=== PATIENT | male | born 1955 | race Caucasian/White ===

== ENCOUNTER → 2025-01-24 08:42 | Outpatient (REF) | payer OTHER, SELFPAY | LOC: RAD 08:42 | PROVIDERS: ATTENDING PHYSICIAN Internal Medicine Clinical Cardiac Electrophysiology; FAMILY PHYSICIAN Nurse Practitioner | DX: R94.39 Abnormal result of other cardiovascular function study (principal) | CPT/HCPCS: 75574; Q9967 ==

== ENCOUNTER 2025-02-06 20:35 | Inpatient (IN) | payer OTHER, SELFPAY ==
[2025-02-06 20:40] VITALS: BP 159/72
[2025-02-06 20:43] VITALS: BP 154/78
[2025-02-06 20:48] VITALS: BMI 33.5
--- NOTE | 2025-02-06 22:01 | PTCARENOTE ---
Rec'd pt as transfer. Pt AAO*3, VSS, and SR on BBB and 1st degree AV block. Pt denies any pain or discomfort. PT oriented to room and call reyes. Pt denies any pain or discomfort. Pt now resting with call reyes in reach. Admission complete. See
MAR and flowchart for full pt care and assessment.
[2025-02-06 22:35] VITALS: BP 145/92
--- NOTE | 2025-02-06 23:44 | PTCARENOTE ---
R radial site from [facility], no ecchymosis, or edema present. Pt denies pain or discomfort at site.
--- NOTE | 2025-02-06 23:54 | HPS.HSE ---
Family Physician
-
Family Physician: Dr Miramontes
Preventive Medicine Physician: Dr. Berrios at [facility]
Chief Complaint
-
Chest pain and FABIAN.
History of Present Illness
Mr Townsend is a very pleasant 69 yo gentleman with hx HTN, hyperlipidemia, non-smoker, RBBB/LAFB, Non-Hodgkin's lymphoma in 2017 with partial thyroidectomy and chemo, fatty liver, diverticulitis with hemicolectomy. Pt initially had episode of CP on
2024 [place] the [place]. At that time, CP radiated to his back along with sxs of nausea and diaphoresis. He underwent a pharmacologic stress test with nuclear imaging on 12/04/24, which revealed defect in the inferolateral wall
concerning for ischemia. He was referred for a catherization, though the study was denied by his insurance. He underwent a CT coronary angiogram on 01/25, revealing a 50-70% stenosis in the proximal LAD, a greater than 70% stenosis in D1, greater
than 70% stenosis in the L Circ artery, and greater than 70% stenosis in the RCA. He underwent TTE on 10/31/24 demonstrating normal LV size and systolic function with EF 55-60%. He was started on daily baby ASA by his programming intern at that time. He
also takes Losartan 50 mg qd for HTN. In the past, he was also taking Lasix as needed for L leg swelling with neuropathy, but no longer takes that. He states that studies of this were unrevealing.
On 02/05/25 Mr Townsend experienced CP with significant dyspnea and headache while carrying heavy groceries from [employer]. On the advice from Dr. Berrios, he presented to [facility] ED. He denied having any nausea or diaphoresis and reported
that CP felt 'stabbing or burning' and non-radiating. It was relieved with 1 sl Nitro in ED. High-sesitivity troponins were 17 and 18. His initial ECG was unchanged from baseline and revealed NSR with a RBBB and LAFB. Labs demonstrated Hg 14.7, Cr
0.99, TSH was elevated 9.57 with nl free T4 of 0.75, nl LFTs. Lipid profile revealed total cholesterol 184, triglycerides 149, HDL 33, LDL 121, Chol/HDL ratio 5.6. Pt was started on Lipitor and Toprol.
On 02/06/25 he underwent cardiac cath revealing mv-CAD and was transferred to for an evaluation for CABG. He denies having any CP since his presentation to the ED. He appears comfortable, no SOB or CP. He is not on any drips.
Medical History
Past Medical History
Past Medical History: Reports CAD, HTN and Hypercholesterolemia
Additional Past Medical History:
-Non-Hodgkin's lymphoma in 2017 with chemotherapy (in remission)
-Fatty liver
-L leg paresthesia/neuropathy
Past Surgical History: Reports Appendectomy, Bowel Resection and Cholecystectomy
Additional Past Surgical History:
-Partial thyroidectomy with chemo for lymphoma
-Hemicolectomy for divericullitis
-Cholecystectomy
-L knee surgery in 2022 for traumatic quadriceps tendon rupture after a fall
Social History
Tobacco: Non-smoker
Alcohol: Occasional
Drug: None
Personal: ('s name is Evelyne)
Living: With Family
Employment: Retired (Pt used to work at past factory)
Family History
Family History: Early CAD
Allergies / Home Medications
Allergies reflects when Allergies were last updated in [facility].
Home Medications with original date entered in [facility]
Allergy/Medication List:
Allergies
Allergy/AdvReac Type Severity Reaction Status Date / Time
NKA - No Known Allergies Allergy Unknown Unknown Uncoded 10/20/13 00:03
ASA 81 mg qd
Losartan 50 mg qd
Lipitor 40 mg qd
Toprol XL 25 mg qd
Heparin 5000 units sq q8h
Review of Systems
-
History Source: Patient
A 12 point ROS was completed and negative except as noted: Yes
Constitutional: Reports No Symptoms
EENT: Reports No Symptoms
Respiratory: Reports Other (FABIAN)
Cardiac: Reports Chest Pain
Abdomen/GI: Reports No Symptoms
: Reports No Symptoms
Musculoskeletal: Reports No Symptoms
Skin: Reports No Symptoms
Neurological: Reports No Symptoms
Endocrine: Reports No Symptoms
Hematologic/Lymphatic: Reports No Symptoms
Psych: Reports No Symptoms
Physical Exam
Vital Signs
Vital Signs
Temp Pulse Resp BP Pulse Ox
98.4 F 57 16 145/92 98
02/06/25 20:49 02/06/25 23:00 02/06/25 20:49 02/06/25 22:35 02/06/25 23:41
Physical Exam
General: Well Developed, Well Nourished, No Apparent Distress, Comfortable and Conversant
HEENT: NormoCephalic, Moist mucous membranes, Atraumatic, PERRLA and Other (no carotid bruit b/l)
Respiratory: Clear
Cardiac: S1/S2 and Regular Rhythm
GI: Soft, Non Tender, Non Distended and Normal Bowel Sounds
Musculoskeletal: No Clubbing, No Cyanosis, Edema, Left Lower Extremity (1+) and Edema, Right Lower Extremity (1+)
Skin: Dry
Neuro: Awake, AO x 3, No Motor Deficits and Nonfocal/grossly intact
Psych: Calm and Intact Judgment/Insight
Laboratory Results
-
as in HPI
Data Reviewed
-
Diagnostic Radiology: Report Reviewed by me
CT Scan: Report Reviewed by me
Medical Tests (Nuc Med, Echo, EKG etc): Report Reviewed by me
Lab Data: Labs Reviewed by me
Old Records: Reviewed
Impression/Plan
-
IMPRESSION:
-Cath 02/06/25 at [facility] with mv-CAD- transferred for evaluation for CABG
-HTN
-HLD
-RBBB/LAFB
-TTE on 10/31/24 demonstrating normal LV size and systolic function with EF 55-60%
-Non-Hodgkin's lymphoma 2017 with partial thyroidectomy and chemo. Pt had no radiation (refused)
-Elevated TSH 9.57 with nl free T4 of 0.75 on 02/05/25
-Coronary CT angio 01/24/25 revealed enlargement of the left lobe of the liver and caudate lobe, suggesting mild hepatic cirrhosis. Also, mild diffuse pancreatic parenchymal atrophy and lipomatosis; mildly enlarged spleen and likely complex cyst at
R kidney.
-hx diverticulitis with hemicolectomy
-Cholecystectomy
-L knee sx
-intermittent L lower extremity swelling with paresthesia and discoloration, suspected neuropathy.
PLAN:
-review findings with Dr. Hills
-initiate preop evaluation for CABG
-continue ASA, Lipitor, Toprol, prn sl Nitro. Will consider iv Nitro if further CP
-will hold off Losartan preop
-will ask Cardiology to follow
-follow rhythm (sinus jc mid 50s overnight).
[2025-02-07 03:41] VITALS: BP 147/77; BMI 33.3
[2025-02-07 03:56] LABS: Hematocrit 43.8 % (39.0-52.0); Hemoglobin 14.5 g/dL (13.0-18.0); Mean Corp Hgb Conc. 33.1 g/dL (33.0-37.0); Mean Corpuscular Volume 94.0 fL (80.0-94.0); Platelet Count 225 10^3/uL (130-400); Red Cell Dist. Width 12.9 % (11.5-14.5)
[2025-02-07 04:05] LABS: INR 1.01; PT 13.8 Sec (11.4-14.6)
[2025-02-07 04:06] LABS: APTT 30.8 Sec (23.4-35.0)
[2025-02-07 04:24] LABS: ALT (SGPT) 49 U/L (0-50); AST (SGOT) 35 U/L (17-59); Albumin 4.1 g/dl (3.5-5.0); Alkaline Phosphatase 55 U/L (38-126); Blood Urea Nitrogen 15 mg/dl (9-20); Calcium 9.1 mg/dl (8.4-10.2); Carbon Dioxide 24 mmol/L (22-30); Chloride 109 mmol/L (98-107); Estimated Creatinine Clearance 99 ml/min; Glucose 112 mg/dl (70-99); Magnesium 1.9 mg/dl (1.6-2.3); Potassium 4.4 mmol/L (3.5-5.1); Sodium 140 mmol/L (135-145); Total Protein 6.9 g/dl (6.3-8.2); eGFR > 60.00
[2025-02-07 04:36] LABS: Troponin I 0.022 ng/ml
[2025-02-07 07:41] VITALS: BP 146/72
--- NOTE | 2025-02-07 08:04 | CON.CAR ---
Addendum entered and electronically signed by Arthur Anne MD 02/07/25 15:27:
I saw and examined the patient independently, and performed majority of MDM.
The MOBILE DEVELOPER's note was reviewed and I agree with the note with changes, additions below.
Comment: 69 yo male with HTN transferred to for CABG eval. Cath showed multivessel CAD. He is currently chest pain free. Exam with RRR, no murmurs, no edema. Cr 0.8. Tele: SR/SB, PVC's.
Multivessel CAD
-echo
-CABG eval
-ASA, metoprolol, statin
HTN
-cont metoprolol
Original Note:
Consultation
Consultation Request
Date/Time Consultation Requested: 02/07/25 7a
Date/Time Consultation Performed: 02/07/25 8a
Requesting Provider: CHRISTIAN Zayas
Performing Provider: CHRISTIAN Crain for Dr. Anne
Reason for Consultation: CAD
Medical History
-
Chief Complaint: CAD
History of Present Illness:
Mr. Townsend is a 69 yo male with HTN, non-Hodgkin's lymphoma 2017 treated with chemo, diverticulitis with hemicolectomy, fatty liver, RBBB, LAFB, and abnormal outpatient stress test (11/2024) his insurance denied a cath and abnormal CT coronary angio
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 Saenz. Troponins were elevated and so he underwent cardiac cath 02/06/25 that showed multivessel CAD. He was transferred to [facility] for evaluation of
CABG. Echo 10/2024 with normal LVEF. We are consulted for CAD.
Urologist is Dr. Berrios at [facility].
Past Medical History
Past Medical History: Other (as above)
Past Surgical History: Appendectomy, Bowel Resection, Cholecystectomy, Orthopedic (left knee surgery 2022) and Other (partial thyroidectomy)
Social History
Tobacco: Non-Smoker
Alcohol: Occasional (1 glass of wine a week)
Drug: None
Personal:
Living: With Family
Employment: Retired
Family History
Family History: Early CAD
Allergies / Home Medications
Allergy/AdvReac Type Severity Reaction Status Date / Time
NKA - No Known Allergies Allergy Unknown Unknown Uncoded 10/20/13 00:03
�Medication �Instructions �Recorded �Confirmed �Type
losartan 100 mg tablet 100 mg PO DAILY 01/24/25 01/24/25 History
Review of Systems
-
History Source: Patient
All other systems: Negative unless noted
Physical Exam
Vital Signs
Temp Pulse Resp BP Pulse Ox
98.4 F 69 18 145/92 98
02/07/25 07:42 02/07/25 03:39 02/07/25 07:42 02/06/25 22:35 02/07/25 07:42
Lab Results
02/07/25 03:48
02/07/25 03:48
Troponin I 0.022 ng/ml 02/07/25 03:48
Physical Exam
General: Well Developed, Well Nourished and No Apparent Distress
HEENT: Normocephalic and Anicteric
Respiratory: Clear and Non Labored Respirations
Cardiac: S1/S2 and Regular Rhythm
Breast: Deferred by me
GI: Soft, Non Tender and Normal Bowel Sounds
Genito-urinary: Clear Urine
Musculoskeletal: No Edema
Skin: Warm and Dry
Neuro: AO x 3
Hematologic/Lymphatic: No Lymphadenopathy
Psych: Calm
Impression / Plan
-
CAD - multivessel on cath 02/06/25.
- transferred to [facility] for CABG evaluation.
- continue medical therapy.
- await CT surgery eval and timing for CABG.
HTN - stable on Losartan.
- holding Losartan prior to CABG.
HLD - on Lipitor.
- Lipid profile 02/05/25 TC 184, TG 149, HDL 33, LDL 121.
- goal LDL < 55.
RBBB/LAFB - chronic, stable.
Data Reviewed
-
EKG: Tracing Personally Visualized and interpreted (SR 64 bpm bifascicular block )
Radiology: Report Reviewed by me (CXR: NAD )
Medical Tests (Nuc Med, Echo etc): Report Reviewed by me (CT coronary angiogram 01/25/25: 50-70% stenosis in the proximal LAD, a greater than 70% stenosis in D1, greater than 70% stenosis in the LCx, and greater than 70% stenosis in the RCA.) and
Other (Echo 10/2024: normal LVEF)
Labs: Labs Reviewed by me
Old Records: Reviewed
[2025-02-07] MEDS: LOW STRENGTH ASPIRIN 81 MG PO (09:13)
[2025-02-07] MEDS: TOPROL XL 25 MG PO (09:13)
[2025-02-07 10:30] LABS: Glycohemoglobin (HgbA1c) 6.2 % (4.0-5.9)
[2025-02-07 10:55] VITALS: BP 147/86
--- NOTE | 2025-02-07 14:10 | PTCARENOTE ---
Pt denies any discomfort, OOB in his room. Pt had CT scan of the chest and multiple U/S studies done. Telemetry shows sinus rhythm with first degree AV block, BBB. Pt using IS to 3250mls with good technique.
[2025-02-07 15:15] VITALS: BP 142/72
--- NOTE | 2025-02-07 16:50 | CM ---
spoke to pt in room, he is prev indep, lives with his in an apt with 5 steps to enter. he denies any dme's. plan is for CABG on 02/12, cm gave pt ct surgery book, will sit down and preop both him and his next week before surgery. cm
role explained and all questions answered.
[2025-02-07] MEDS: LIPITOR 40 MG PO (17:56)
--- NOTE | 2025-02-07 17:57 | PTCARENOTE ---
pt remains stable -no chest pain. family visiting.
--- NOTE | 2025-02-07 18:35 | W.PN.UPDATE ---
Update Note
Progress Note Update
STS RISK SCORE
Procedure Type:�Isolated CABG
Perioperative Outcome Estimate %
Operative Mortality 0.407%
Morbidity & Mortality 2.81%
Stroke 0.345%
Renal Failure 0.342%
Reoperation 1.57%
Prolonged Ventilation 1.35%
Deep Sternal Wound Infection 0.098%
Long Hospital Stay (>14 days) 0.962%
Short Hospital Stay (<6 days)* 75.4%
Clinical Summary
Planned Surgery: Isolated CABG, Urgent, First cardiovascular surgery
Demographics: 69 year old, male, 96.3kg, 170cm, BMI: 33.3 kg/m�
Lab Values: Creatinine: 0.8 mg/dL, Hematocrit: 43.8%, WBC Count: 7.8 10�/�L, Platelet Count: 867895 cells/�L
Substance Abuse: Never smoker, Alcohol use: 2-7 drinks/week
Risk Factors / Comorbidities: Hypertension, Family Hx of CAD
Cardiac Status: NYHA Class II, Ejection Fraction = 53%
Coronary Artery Disease: Unstable Angina
Valve Disease: Moderate MR, Trivial/Trace TR
[2025-02-07 18:44] VITALS: BP 147/75
[2025-02-07 22:44] VITALS: BP 128/63
--- NOTE | 2025-02-08 00:39 | W.PN.CT ---
Today's Communication / Plan
-
-no issues overnight
-no significant carotid stenosis
-complete palmar arch on Left
-plans for CABG on 02/[address] Hills
Assessment / Plan
-
IMPRESSION:
-mv-CAD- transferred for evaluation for CABG
-HTN
-HLD
-RBBB/LAFB
-TTE on 10/31/24 demonstrating normal LV size and systolic function with EF 55-60%
-Non-Hodgkin's lymphoma 2017 with partial thyroidectomy and chemo. Pt had no radiation (refused)
-Elevated TSH 9.57 with nl free T4 of 0.75 on 02/05/25
-Coronary CT angio 01/24/25 revealed enlargement of the left lobe of the liver and caudate lobe, suggesting mild hepatic cirrhosis. Also, mild diffuse pancreatic parenchymal atrophy and lipomatosis; mildly enlarged spleen and likely complex cyst at
R kidney.
-CT 02/07/25: fatty liver, suspected early cirrhosis
-hx diverticulitis with hemicolectomy
-Cholecystectomy
-L knee sx
-intermittent L lower extremity swelling with paresthesia and discoloration, suspected neuropathy.
Echo 02/07/25:
1. Normal left ventricular size, and systolic function. Estimated LVEF 50-55%.
2. Basal inferior hypokinesis.
3. Mild/moderate mitral valve regurgitation.
4. Aortic valve sclerosis without stenosis.
5. Trivial pericardial effusion is present.
6. No prior study for comparison.
Chest CT 02/07/25:
-There is no evidence for thoracic aortic aneurysm.
-Coronary artery calcifications are present in this patient scheduled for cardiothoracic surgery.
-Thin linear densities within both lower lungs compatible with linear atelectasis.
-Minimal pericardial effusion, unlikely to be clinically significant.
-Fatty infiltration the liver, with morphology that can be associated with early cirrhosis. Please correlate with any risk factors for cirrhosis.
Discussed patient care with: Nursing and Care Team
Subjective
-
Date of Service: February 08, 2025
Objective Data
-
Lab Results
02/07/25 03:48
02/07/25 03:48
PT 13.8 Sec (11.4-14.6) 02/07/25 03:48
INR 1.01 02/07/25 03:48
APTT 30.8 Sec (23.4-35.0) 02/07/25 03:48
Vital Signs
Vital Signs
Temp Pulse Resp BP Pulse Ox
98.2 F 68 20 142/72 98
02/07/25 22:50 02/07/25 18:43 02/07/25 22:50 02/07/25 15:15 02/07/25 22:50
CT Intake/Output/Weight
02/07/25 02/07/25 02/08/25
06:59 18:59 06:59
Intake Total 250 / 250 240 / 240
Balance 250 / 250 240 / 240
SaO2: 98
Physical Exam
-
General: Awake and AOx3
Cardiovascular: Regular rate & rhythm, No Murmurs and No Rub
Respiratory: Clear
Extremities: Edema +1
Abdomen: soft, nontender, nondistended, + bowel sounds
Data Reviewed
-
Lab Results: Results Reviewed
Medications: Active Meds Reviewed
Chest X-Ray: Report Reviewed and Image Reviewed
ECG: Report Reviewed and Image Reviewed
--- NOTE | 2025-02-08 03:30 | PTCARENOTE ---
Assumed care on pt at 1900, aaox3,walking around the unit with no c/o cp or SOB. SR/SB on the monitor, HR 55-70's. Call reyes within reach.
[2025-02-08 04:04] VITALS: BP 152/75; BMI 33.1
[2025-02-08] MEDS: LOW STRENGTH ASPIRIN 81 MG PO (07:49)
[2025-02-08] MEDS: TOPROL XL 25 MG PO (07:49)
[2025-02-08 08:52] VITALS: BP 138/64
--- NOTE | 2025-02-08 09:05 | W.PN.CD ---
Today's Communication / Plan
-
Continue with medical therapy
Continued assessment for CABG by CT surgery
Impression / Plan
-
CAD - multivessel on cath 02/06/25.
- transferred to [facility] for CABG evaluation.
- Echo with EF 50 to 55%
- Stable evaluated overnight
- continue medical therapy.
- await CT surgery eval and timing for CABG.
HTN -continue to monitor.
- Blood pressure mildly elevated. Can add amlodipine for additional blood pressure control.
- holding Losartan prior to CABG.
HLD -now on Lipitor.
- Lipid profile 02/05/25 TC 184, TG 149, HDL 33, LDL 121.
RBBB/LAFB - chronic, stable.
Physical Exam
Vital Signs/Labs
Vital Signs
Temp Pulse Resp BP Pulse Ox
98.0 F 56 20 152/75 98
02/08/25 03:57 02/08/25 06:00 02/08/25 03:57 02/08/25 04:04 02/08/25 03:57
02/07/25 02/08/25 02/09/25
06:59 06:59 05:59
Actual Weight 96.3 kg 95.7 kg
02/07/25 03:48
02/07/25 03:48
PT 13.8 Sec (11.4-14.6) 02/07/25 03:48
INR 1.01 02/07/25 03:48
APTT 30.8 Sec (23.4-35.0) 02/07/25 03:48
Magnesium 1.9 mg/dl (1.6-2.3) 02/07/25 03:48
LAB Results
02/07/25
03:48
Troponin I 0.022
Physical Exam
Constitutional: No acute distress
Cardiovascular: Rhythm & rate is regular
Respiratory: Wheeze Absent and Rhonchi Absent
Neuro/Psych: Alert and Oriented
Data Reviewed
-
Date of Service: February 08, 2025
Medical Decision Making: Reviewed Test Results
X-Ray/CT/US/MRI/NUC/PET: Report Reviewed by me
Medical Tests (PFT, Pathology etc): Report Reviewed by me
Labs: Labs Reviewed by me
--- NOTE | 2025-02-08 09:13 | W.PN.CD ---
Today's Communication / Plan
-
Stable without angina
Continue to monitor blood pressures can add amlodipine or nitrates if additional blood pressure control required can reassess blood pressures after morning beta-rakesh. No additional room for beta-rakesh increase due to heart rate
Additional assessment for CABG by CT surgery
Impression / Plan
-
CAD - multivessel on cath 02/06/25.
- transferred to [facility] for CABG evaluation.
- Echo with EF 50 to 55%
- Stable evaluated overnight
- continue medical therapy.
- await CT surgery eval and timing for CABG.
HTN -continue to monitor.
- Blood pressure mildly elevated. Can add amlodipine for additional blood pressure control. Can consider addition of amlodipine or nitrates for additional blood pressure control
- holding Losartan prior to CABG.
HLD -now on Lipitor.
- Lipid profile 02/05/25 TC 184, TG 149, HDL 33, LDL 121.
RBBB/LAFB - chronic, stable.
Physical Exam
Vital Signs/Labs
Vital Signs
Temp Pulse Resp BP Pulse Ox
98.0 F 56 20 152/75 98
02/08/25 03:57 02/08/25 06:00 02/08/25 03:57 02/08/25 04:04 02/08/25 03:57
02/07/25 02/08/25 02/09/25
06:59 06:59 05:59
Actual Weight 96.3 kg 95.7 kg
02/07/25 03:48
02/07/25 03:48
PT 13.8 Sec (11.4-14.6) 02/07/25 03:48
INR 1.01 02/07/25 03:48
APTT 30.8 Sec (23.4-35.0) 02/07/25 03:48
Magnesium 1.9 mg/dl (1.6-2.3) 02/07/25 03:48
LAB Results
02/07/25
03:48
Troponin I 0.022
Physical Exam
Constitutional: No acute distress
Cardiovascular: Rhythm & rate is regular
Respiratory: Wheeze Absent and Rhonchi Absent
GI: Soft and Non tender
Neuro/Psych: Alert
Data Reviewed
-
Date of Service: February 08, 2025
Medical Decision Making: Reviewed Test Results
Medical Tests (PFT, Pathology etc): Report Reviewed by me
Labs: Labs Reviewed by me
[2025-02-08 11:55] VITALS: BP 114/67
[2025-02-08 15:06] VITALS: BP 134/71
[2025-02-08] MEDS: LIPITOR 40 MG PO (17:17)
--- NOTE | 2025-02-08 17:32 | PTCARENOTE ---
Assessment as documented - VSS,no chest pain. ambulating in hallway throughout day, discussed wed surgery. family and friends visiting throughout day.
[2025-02-08 19:23] VITALS: BP 144/77
--- NOTE | 2025-02-08 20:51 | PTCARENOTE ---
Received pt with VSS. sinus rhythm with bbb and 1st degree. Denies chest pain or shortness of breath.
[2025-02-08 21:57] VITALS: BP 137/69
--- NOTE | 2025-02-09 01:13 | W.PN.CT ---
Today's Communication / Plan
-
-no issues overnight
-continue ASA, atorvastatin, BB
-plans for CABG on 02/[address] Hills
Assessment / Plan
-
IMPRESSION:
-mv-CAD- transferred for evaluation for CABG
-HTN
-HLD
-RBBB/LAFB
-TTE on 10/31/24 demonstrating normal LV size and systolic function with EF 55-60%
-Non-Hodgkin's lymphoma 2017 with partial thyroidectomy and chemo. Pt had no radiation (refused)
-Elevated TSH 9.57 with nl free T4 of 0.75 on 02/05/25
-Coronary CT angio 01/24/25 revealed enlargement of the left lobe of the liver and caudate lobe, suggesting mild hepatic cirrhosis. Also, mild diffuse pancreatic parenchymal atrophy and lipomatosis; mildly enlarged spleen and likely complex cyst at
R kidney.
-CT 02/07/25: fatty liver, suspected early cirrhosis
-hx diverticulitis with hemicolectomy
-Cholecystectomy
-L knee sx
-intermittent L lower extremity swelling with paresthesia and discoloration, suspected neuropathy.
Echo 02/07/25:
1. Normal left ventricular size, and systolic function. Estimated LVEF 50-55%.
2. Basal inferior hypokinesis.
3. Mild/moderate mitral valve regurgitation.
4. Aortic valve sclerosis without stenosis.
5. Trivial pericardial effusion is present.
6. No prior study for comparison.
Chest CT 02/07/25:
-There is no evidence for thoracic aortic aneurysm.
-Coronary artery calcifications are present in this patient scheduled for cardiothoracic surgery.
-Thin linear densities within both lower lungs compatible with linear atelectasis.
-Minimal pericardial effusion, unlikely to be clinically significant.
-Fatty infiltration the liver, with morphology that can be associated with early cirrhosis. Please correlate with any risk factors for cirrhosis.
Subjective
-
Date of Service: February 09, 2025
Objective Data
-
Lab Results
02/07/25 03:48
02/07/25 03:48
PT 13.8 Sec (11.4-14.6) 02/07/25 03:48
INR 1.01 02/07/25 03:48
APTT 30.8 Sec (23.4-35.0) 02/07/25 03:48
Vital Signs
Vital Signs
Temp Pulse Resp BP Pulse Ox
97.9 F 69 20 144/77 96
02/08/25 21:57 02/08/25 20:00 02/08/25 21:57 02/08/25 19:23 02/08/25 21:57
CT Intake/Output/Weight
02/08/25 02/08/25 02/09/25
06:59 18:59 05:59
Intake Total 240 / 480
Balance 240 / 480
SaO2: 96
Physical Exam
-
General: Awake and Oriented
Cardiovascular: Regular rate & rhythm and No Murmurs
Respiratory: Clear and Equal
Extremities: No Edema
Data Reviewed
-
Lab Results: Results Reviewed
Medications: Active Meds Reviewed
Chest X-Ray: Report Reviewed
ECG: Report Reviewed
[2025-02-09 03:08] VITALS: BP 133/69
[2025-02-09 06:00] VITALS: BMI 33.1
[2025-02-09 06:52] VITALS: BP 145/70
[2025-02-09] MEDS: LOW STRENGTH ASPIRIN 81 MG PO (07:56)
[2025-02-09] MEDS: TOPROL XL 25 MG PO (07:56)
[2025-02-09] MEDS: FLUSH (NSS) 2 FLUSH IV (07:58)
--- NOTE | 2025-02-09 08:25 | W.PN.CD ---
Today's Communication / Plan
-
Asymptomatic. No chest discomfort overnight.
Continued evaluation for CABG by CT surgery
Impression / Plan
-
CAD - multivessel on cath 02/06/25.
- transferred to [facility] for CABG evaluation.
- Echo with EF 50 to 55%
- Stable evaluated overnight
- continue medical therapy.
- await CT surgery eval and timing for CABG.
HTN -continue to monitor.
- Blood pressure mildly elevated. Can add amlodipine for additional blood pressure control. Can consider addition of amlodipine or nitrates for additional blood pressure control
- holding Losartan prior to CABG.
HLD -now on Lipitor.
- Lipid profile 02/05/25 TC 184, TG 149, HDL 33, LDL 121.
RBBB/LAFB - chronic, stable.
Physical Exam
Vital Signs/Labs
Vital Signs
Temp Pulse Resp BP Pulse Ox
97.8 F 70 16 145/70 96
02/09/25 06:50 02/09/25 07:56 02/09/25 06:50 02/09/25 07:56 02/09/25 06:50
02/08/25 02/09/25 02/10/25
06:59 05:59 06:59
Actual Weight 95.7 kg 95.8 kg
02/07/25 03:48
02/07/25 03:48
PT 13.8 Sec (11.4-14.6) 02/07/25 03:48
INR 1.01 02/07/25 03:48
APTT 30.8 Sec (23.4-35.0) 02/07/25 03:48
Magnesium 1.9 mg/dl (1.6-2.3) 02/07/25 03:48
LAB Results
02/07/25
03:48
Troponin I 0.022
Physical Exam
Constitutional: No acute distress
Cardiovascular: Rhythm & rate is regular
Respiratory: Wheeze Absent and Rhonchi Absent
GI: Soft and Non tender
Neuro/Psych: Alert
Data Reviewed
-
Date of Service: February 09, 2025
Medical Decision Making: Reviewed Test Results
Medical Tests (PFT, Pathology etc): Report Reviewed by me
Labs: Labs Reviewed by me
--- NOTE | 2025-02-09 09:31 | PTCARENOTE ---
received patient this am sitting on sofa in room ready to eat breakfast. monitor shows NSR with a first degree, VSS. INT x 2 flush well. patient voices no concerns at this time.
[2025-02-09 11:32] VITALS: BP 165/80
[2025-02-09 11:34] VITALS: BP 157/65
[2025-02-09] MEDS: LIPITOR 40 MG PO (17:07)
[2025-02-09 19:30] VITALS: BP 135/62
[2025-02-09 22:13] VITALS: BP 135/70
[2025-02-10 03:54] VITALS: BP 124/69
[2025-02-10 04:02] VITALS: BMI 32.8
[2025-02-10 04:36] LABS: Hematocrit 44.0 % (39.0-52.0); Hemoglobin 14.6 g/dL (13.0-18.0); Mean Corp Hgb Conc. 33.2 g/dL (33.0-37.0); Mean Corpuscular Volume 92.1 fL (80.0-94.0); Platelet Count 240 10^3/uL (130-400); Red Cell Dist. Width 12.6 % (11.5-14.5)
--- NOTE | 2025-02-10 05:14 | PTCARENOTE ---
Pt had no complaints overnight, ambulating self in the room and around unit, denies cp, SOB or lightheadedness. SR/SB w 1st degree HB, HR 45-high 70's. BP stable. Updated on POC, call reyes within reach.
[2025-02-10 05:19] LABS: Blood Urea Nitrogen 17 mg/dl (9-20); Calcium 9.1 mg/dl (8.4-10.2); Carbon Dioxide 22 mmol/L (22-30); Chloride 105 mmol/L (98-107); Estimated Creatinine Clearance 87 ml/min; Glucose 108 mg/dl (70-99); Magnesium 1.9 mg/dl (1.6-2.3); Potassium 5.0 mmol/L (3.5-5.1); Sodium 135 mmol/L (135-145); eGFR > 60.00
--- NOTE | 2025-02-10 06:03 | W.PN.CT ---
Today's Communication / Plan
-
-no issues overnight
-continue ASA, atorvastatin, BB
-plans for CABG on 02/[address] Hills
Assessment / Plan
-
IMPRESSION:
-mv-CAD- transferred for evaluation for CABG
-HTN
-HLD
-RBBB/LAFB
-TTE on 10/31/24 demonstrating normal LV size and systolic function with EF 55-60%
-Non-Hodgkin's lymphoma 2017 with partial thyroidectomy and chemo. Pt had no radiation (refused)
-Elevated TSH 9.57 with nl free T4 of 0.75 on 02/05/25
-Coronary CT angio 01/24/25 revealed enlargement of the left lobe of the liver and caudate lobe, suggesting mild hepatic cirrhosis. Also, mild diffuse pancreatic parenchymal atrophy and lipomatosis; mildly enlarged spleen and likely complex cyst at
R kidney.
-CT 02/07/25: fatty liver, suspected early cirrhosis
-hx diverticulitis with hemicolectomy
-Cholecystectomy
-L knee sx
-intermittent L lower extremity swelling with paresthesia and discoloration, suspected neuropathy.
Echo 02/07/25:
1. Normal left ventricular size, and systolic function. Estimated LVEF 50-55%.
2. Basal inferior hypokinesis.
3. Mild/moderate mitral valve regurgitation.
4. Aortic valve sclerosis without stenosis.
5. Trivial pericardial effusion is present.
6. No prior study for comparison.
Chest CT 02/07/25:
-There is no evidence for thoracic aortic aneurysm.
-Coronary artery calcifications are present in this patient scheduled for cardiothoracic surgery.
-Thin linear densities within both lower lungs compatible with linear atelectasis.
-Minimal pericardial effusion, unlikely to be clinically significant.
-Fatty infiltration the liver, with morphology that can be associated with early cirrhosis. Please correlate with any risk factors for cirrhosis.
Subjective
-
Date of Service: February 10, 2025
Objective Data
-
Lab Results
02/10/25 04:03
02/10/25 04:03
PT 13.8 Sec (11.4-14.6) 02/07/25 03:48
INR 1.01 02/07/25 03:48
APTT 30.8 Sec (23.4-35.0) 02/07/25 03:48
Vital Signs
Vital Signs
Temp Pulse Resp BP Pulse Ox
98.4 F 81 20 124/69 94
02/10/25 03:54 02/10/25 05:00 02/10/25 03:54 02/10/25 03:54 02/10/25 03:54
CT Intake/Output/Weight
02/09/25 02/09/25 02/10/25
05:59 18:59 06:59
Intake Total 240 / 240
Balance 240 / 240
SaO2: 94
Physical Exam
-
General: Awake and Oriented
Cardiovascular: Regular rate & rhythm
Respiratory: Clear
Extremities: No Edema
Data Reviewed
-
Lab Results: Results Reviewed
Medications: Active Meds Reviewed
ECG: Report Reviewed
[2025-02-10 06:49] VITALS: BP 145/72
--- NOTE | 2025-02-10 08:46 | W.PN.CD ---
Today's Communication / Plan
-
pending cabg 02/12
Impression / Plan
-
CAD - multivessel on cath 02/06/25.
- transferred to [facility] for CABG evaluation.
- Echo with EF 50 to 55%
- Stable overnight
- continue medical therapy.
- CABG pending 02/12
HTN -continue to monitor.
- Blood pressure mildly elevated. Can add amlodipine for additional blood pressure control. Can consider addition of amlodipine or nitrates for additional blood pressure control
- holding Losartan prior to CABG.
HLD -now on Lipitor.
- Lipid profile 02/05/25 TC 184, TG 149, HDL 33, LDL 121.
- goal LDL post CABG <55, recommend ezetimibe before dischage, check Lp(a)
RBBB/LAFB - chronic, stable.
Physical Exam
Vital Signs/Labs
Vital Signs
Temp Pulse Resp BP Pulse Ox
36.7 C 71 20 145/72 96
02/10/25 06:49 02/10/25 07:00 02/10/25 06:49 02/10/25 06:49 02/10/25 06:49
02/09/25 02/10/25 02/11/25
05:59 06:59 06:59
Actual Weight 95.8 kg 94.9 kg
02/10/25 04:03
02/10/25 04:03
PT 13.8 Sec (11.4-14.6) 02/07/25 03:48
INR 1.01 02/07/25 03:48
APTT 30.8 Sec (23.4-35.0) 02/07/25 03:48
Magnesium 1.9 mg/dl (1.6-2.3) 02/10/25 04:03
Physical Exam
Constitutional: Comfortable
Cardiovascular: Rhythm & rate is regular
Respiratory: Respiratory effort normal
Neuro/Psych: AO x 3
Data Reviewed
-
Date of Service: February 10, 2025
Medical Decision Making: Reviewed Test Results
EKG: Tracing Personally Visualized and interpreted
Echo: Tracing Personally Visualized and interpreted
Labs: Labs Reviewed by me
[2025-02-10] MEDS: TOPROL XL 25 MG PO (09:16)
[2025-02-10] MEDS: LOW STRENGTH ASPIRIN 81 MG PO (09:16)
[2025-02-10 11:08] VITALS: BP 155/76
--- NOTE | 2025-02-10 11:57 | CM ---
Chart reviewed. Patient is independent of ADLS, lives with his in a apartment, 5 [address], 0 DME. Reviewed preoperative and postoperative instructions and restrictions with the patient and , along with showering guidelines. Patient has a
Cardiac Surgery Book. Patient is agreeable to a visit by CT Transitional RN. Plan is for the patient to return home with CT Transitional RN. CM to follow
--- NOTE | 2025-02-10 13:23 | PTCARENOTE ---
Assumed care of the pt @0700. Pt is AAOx3 SB/SR on the monitor BP stable. Pt ambulating in the hallway offers no complaints. POC discussed with pt and verbalized understanding.
[2025-02-10 15:16] VITALS: BP 162/75
[2025-02-10] MEDS: APRESOLINE 20 MG PO ×2 (17:26→23:03)
[2025-02-10] MEDS: LIPITOR 40 MG PO (17:27)
--- NOTE | 2025-02-10 17:51 | PTCARENOTE ---
Pt's bp 162/75 @ 1530. Lizzie GONZALES notified and added Hydralazine po. Pt education provided for medication including printout from [facility] site.
[2025-02-10 19:17] VITALS: BP 146/74
[2025-02-10 22:57] VITALS: BP 125/66
[2025-02-11 03:46] VITALS: BP 134/72
[2025-02-11 03:47] VITALS: BMI 32.9
--- NOTE | 2025-02-11 06:31 | PTCARENOTE ---
Pt had no complaints overnight, bp stable, SR w/ BBB on tele, Hr 70's. Call reyes within reach.
[2025-02-11 07:54] VITALS: BP 147/65
[2025-02-11] MEDS: LOW STRENGTH ASPIRIN 81 MG PO (07:58)
[2025-02-11] MEDS: MIRALAX 17 GRAMS PO (07:58)
[2025-02-11] MEDS: TOPROL XL 25 MG PO (07:58)
[2025-02-11] MEDS: APRESOLINE 20 MG PO ×3 (08:25→21:43)
[2025-02-11] MEDS: FLUSH (NSS) 2 FLUSH IV (08:26)
--- NOTE | 2025-02-11 09:11 | PTCARENOTE ---
received patient this am walking in room. monitor shows NSR, VSS . INT x 2 flushed and working. right radial cath site D/I, distal pulse palpable. lung pang are clear on RA. patient c/o constipation miralax given as ordered. patient aware of prep
for [facility] in am.
[2025-02-11 10:42] VITALS: BP 136/71
--- NOTE | 2025-02-11 12:58 | CM ---
Chart reviewed. Patient going for a CABG 02/12. Patient is indendent of ADLS, lives with his in a apartment with 5 [address], 0 DME. Plan is for the patient to return home with CT Transitional RN. CM to follow
[2025-02-11 15:05] VITALS: BP 123/48
[2025-02-11] MEDS: SENOKOT-S 1 TABLET PO (16:03)
--- NOTE | 2025-02-11 16:04 | PTCARENOTE ---
patient had BM yesterday morning but wants to have a BM today, gave miralax this am not successful, just gave Senokot as ordered.
[2025-02-11] MEDS: LIPITOR 40 MG PO (17:43)
[2025-02-11 18:36] VITALS: BP 148/70
--- NOTE | 2025-02-11 19:43 | W.PN.CD ---
Today's Communication / Plan
-
stable for OR tomorrow
Impression / Plan
-
CAD - multivessel on cath 02/06/25.
- transferred to [facility] for CABG evaluation.
- Echo with EF 50 to 55%
- Stable today
- continue medical therapy.
- CABG pending tomorrow 02/[address] Hills
HTN -continue to monitor.
- Blood pressure mildly elevated. improved with addition of hydralazine yesterday (would transition to GREGORIA/ARB post operatively if needs further BP control)
- holding Losartan prior to CABG.
HLD -now on Lipitor.
- Lipid profile 02/05/25 TC 184, TG 149, HDL 33, LDL 121.
- goal LDL post CABG <55, recommend ezetimibe before dischage, check Lp(a)
RBBB/LAFB - chronic, stable.
Physical Exam
Vital Signs/Labs
Vital Signs
Temp Pulse Resp BP Pulse Ox
36.5 C 70 18 123/48 98
02/11/25 18:36 02/11/25 18:36 02/11/25 18:36 02/11/25 16:00 02/11/25 18:36
02/10/25 02/11/25 02/12/25
06:59 06:59 06:59
Actual Weight 94.9 kg 95.3 kg
02/10/25 04:03
02/10/25 04:03
PT 13.8 Sec (11.4-14.6) 02/07/25 03:48
INR 1.01 02/07/25 03:48
APTT 30.8 Sec (23.4-35.0) 02/07/25 03:48
Magnesium 1.9 mg/dl (1.6-2.3) 02/10/25 04:03
Physical Exam
Constitutional: Comfortable
Cardiovascular: Rhythm & rate is regular
Respiratory: Respiratory effort normal
Neuro/Psych: AO x 3
Data Reviewed
-
Date of Service: February 11, 2025
Medical Decision Making: Reviewed Test Results
Labs: Labs Reviewed by me
[2025-02-11 21:40] VITALS: BP 151/75
--- NOTE | 2025-02-11 22:13 | PTCARENOTE ---
Received pt @ change of shift. AAOx3, ambulating the halls. VSS-- NSR with BBB on monitor. Denies CP and SOB @ this time. Discussed CVOR prep for evening. Pt verbalizes understanding. Call reyes within reach.
--- NOTE | 2025-02-11 22:31 | PTCARENOTE ---
Pt's evening prep for CVOR tomorrow is complete. Pt was clipped neck to ankles and CHG shower complete. New gown and sheets, bed and call reyes wiped down. Vital signs obtained. Discussed prep that will be completed in the morning. Informed CV PA
(Meli Yin) prep was completed-- verified and checked patient. Two bracelets received from admissions. Call reyes within reach. Pt encouraged to rest and to call with any needs.
[2025-02-12] VITALS (15 sets, daily range): BP systolic 90–150; BP diastolic 56–81; BMI 32.6
--- NOTE | 2025-02-12 05:32 | PTCARENOTE ---
Second CHG shower and CHG wipes have been completed. Vital signs and weight obtained. Bed has been brought over from CVICU-- pt belongings brought to [id number]. CVOR handoff sheet filled out (-medications because they have not been given yet). Patient is
resting quietly, waiting for family to arrive.
[2025-02-12] MEDS: BACTROBAN 2% OINTMENT 1 APPLIC NASAL ×2 (06:01→20:06)
[2025-02-12] MEDS: MAGNESIUM OXIDE 400 MG PO (06:02)
[2025-02-12] MEDS: LOPRESSOR 25 MG PO (06:02)
[2025-02-12] MEDS: PROTONIX 40 MG PO (06:02)
--- NOTE | 2025-02-12 06:11 | W.CVOR.SURPR ---
CVOR Surgeon Immed Pre Op
-
I have examined this patient prior to performance of the scheduled procedure.
The patient's condition is unchanged from the time of the dictated/written History and
Physical and the patient is able to undergo the scheduled procedure.
[2025-02-12 08:18] LABS: ACT+ - POC 123 Seconds (82-134)
[2025-02-12 08:31] LABS: Urine Character Clear (Clear)
--- NOTE | 2025-02-12 08:32 | CM ---
Reviewed chart. Mr. Townsend is in [facility] operating room today. Prior to admission he resides with his spouse in an apartment with five steps to enter. Prior to admission he was independent with ambulation and adls. He does not hacve any DME in the home.
He has a prescription plan. Will need to see his functional level post surgery to see if he will have any skilled care needs. Medical work-up in progress. The discharge plan is undetermined at time time.
[2025-02-12 08:42] LABS: Urine Squamous Cell 0-2 /LPF (Few); Urine White Cell 0-2 /HPF (0-5)
[2025-02-12 10:29] LABS: ACT+ - POC 644 Seconds (82-134)
[2025-02-12 10:55] LABS: B.E. - POC -1.8 mmol/L; Glucose - POC 134 mg/dl (70-99); HCO3 - POC 23 mmol/L (21-28); Hematocrit - POC 39 % PCV (42-52); Hemodilution- POC No; Hemoglobin Calculated - POC 13.3; Ionized Calcium - POC 1.20 mmol/L (1.15-1.33); Lactate - POC 0.75 mmol/L (0.36-0.75); O2 Saturation %Calculated-POC 99.6 % (94-98); PCO2 - POC 37 mmHg (35-48); PO2 - POC 174 mmHg (83-108); POC Comment PRE; Potassium - POC 4.1 mmol/L (3.5-5.1); Sodium - POC 139 mmol/L (136-145); Specimen Type - POC Arterial; pH - POC 7.40 (7.35-7.45)
[2025-02-12 11:08] LABS: ACT+ - POC 653 Seconds (82-134)
[2025-02-12 11:19] LABS: B.E. - POC 2.9 mmol/L; Glucose - POC 159 mg/dl (70-99); HCO3 - POC 27 mmol/L (21-28); Hematocrit - POC 28 % PCV (42-52); Hemodilution- POC Yes; Hemoglobin Calculated - POC 9.5; Ionized Calcium - POC 1.01 mmol/L (1.15-1.33); Lactate - POC 1.57 mmol/L (0.36-0.75); O2 Saturation %Calculated-POC 100.0 % (94-98); PCO2 - POC 39 mmHg (35-48); PO2 - POC 354 mmHg (83-108); POC Comment CPB; Potassium - POC 5.6 mmol/L (3.5-5.1); Sodium - POC 138 mmol/L (136-145); Specimen Type - POC Arterial; pH - POC 7.45 (7.35-7.45)
[2025-02-12 11:30] LABS: B.E. - POC 2.2 mmol/L; Glucose - POC 186 mg/dl (70-99); HCO3 - POC 26 mmol/L (21-28); Hematocrit - POC 30 % PCV (42-52); Hemodilution- POC Yes; Hemoglobin Calculated - POC 10.2; Ionized Calcium - POC 1.04 mmol/L (1.15-1.33); Lactate - POC 1.47 mmol/L (0.36-0.75); O2 Saturation %Calculated-POC 99.9 % (94-98); PCO2 - POC 38 mmHg (35-48); PO2 - POC 277 mmHg (83-108); POC Comment CPB; Potassium - POC 5.7 mmol/L (3.5-5.1); Sodium - POC 137 mmol/L (136-145); Specimen Type - POC Arterial; pH - POC 7.45 (7.35-7.45)
[2025-02-12 12:02] LABS: ACT+ - POC 479 Seconds (82-134)
[2025-02-12 12:18] LABS: B.E. - POC 0.1 mmol/L; Glucose - POC 166 mg/dl (70-99); HCO3 - POC 25 mmol/L (21-28); Hematocrit - POC 30 % PCV (42-52); Hemodilution- POC Yes; Hemoglobin Calculated - POC 10.2; Ionized Calcium - POC 1.04 mmol/L (1.15-1.33); Lactate - POC 1.61 mmol/L (0.36-0.75); O2 Saturation %Calculated-POC 99.9 % (94-98); PCO2 - POC 38 mmHg (35-48); PO2 - POC 251 mmHg (83-108); Potassium - POC 5.2 mmol/L (3.5-5.1); Sodium - POC 138 mmol/L (136-145); Specimen Type - POC Arterial; pH - POC 7.42 (7.35-7.45)
[2025-02-12 12:27] LABS: ACT+ - POC 572 Seconds (82-134)
--- NOTE | 2025-02-12 12:41 | CON.INTV ---
Consultation
Consultation Request
Date/Time Consultation Requested: 02/12/2025-12 40 5 PM
Date/Time Consultation Performed: 02/12/2025-1 PM
Requesting Provider: Cardiovascular surgery
Performing Provider: Dr. Garza
Reason for Consultation: Postoperative ventilator/critical care management
Medical History
-
Chief Complaint: CAD
History of Present Illness:
69-year-old non-smoking male with a history of hypertension, hyperlipidemia, non-Hodgkin's lymphoma 2017, fatty liver, diverticulitis with hemicolectomy found to have significant CAD and underwent CABG-twisting frame operator consulted for postoperative
ventilator/critical care management 02/12/2025. Patient is intubated and sedated seen in the CVICU. Review of systems was unobtainable. Operative records, chest tube output, pressor requirements and ventilator settings were reviewed.
Past Medical History
Past Medical History: None (Hypertension. Hyperlipidemia. Non-Hodgkin's lymphoma 2017. Fatty liver. Diverticulitis/hemicolectomy.)
Social History
Tobacco: Non-smoker
Alcohol: Occasional
Drug: None
Personal:
Living: With Family
Occupational Exposures: No known asbestos exposure
Environmental Exposures: No known tuberculosis exposure
Family History
Family History: Reviewed & Not Pertinent (Except early CAD)
Allergies / Home Medications
Allergies
Allergy/AdvReac Type Severity Reaction Status Date / Time
NKA - No Known Allergies Allergy Unknown Unknown Uncoded 10/20/13 00:03
Home Medications
�Medication �Instructions �Recorded �Confirmed �Last Taken �Type
aspirin 81 mg tablet 81 mg PO DAILY Blood Clot 02/07/25 02/07/25 02/05/25 08:00 History
Prevention/Tx
losartan 50 mg tablet 50 mg PO DAILY Hypertension 02/07/25 02/07/25 02/05/25 08:00 History
50 mgs
Review of Systems
-
Unable to Obtain full review of systems at this time due to: Patient Intubation
Vitals / Labs / Diagnostic Testing
Vital Signs
Temp Pulse Resp BP Pulse Ox
97.9 F 71 16 126/56 94
02/12/25 05:06 02/12/25 06:02 02/12/25 05:06 02/12/25 06:02 02/12/25 05:06
Lab Data
02/10/25 04:03
02/10/25 04:03
Diagnostic Testing:
Physical Exam
-
Exam:
Well-nourished and well-developed in no apparent distress
HEENT-atraumatic, normocephalic, oral tracheal intubation
Heart-regular rate and rhythm-no murmurs, rubs or gallops
Chest-clear to auscultation, no wheezes, crackles, median sternotomy bandage is not removed
Abdomen soft nondistended
Extremities-no cyanosis, clubbing, edema and good peripheral pulses
Integument-intact, no rashes, lesions or ecchymosis
Neurologically not alert, not oriented, not moving any of his extremities sedated on a ventilator
Assessment
-
69-year-old non-smoking male with a history of hypertension, hyperlipidemia, non-Hodgkin's lymphoma 2017, fatty liver, diverticulitis with hemicolectomy found to have significant CAD and underwent CABG-twisting frame operator consulted for postoperative
ventilator/critical care management 02/12/2025.
Multivessel CAD with preoperative preserved EF
Status post CABG x 4-Ligia-LAD, GSV-D, GSV-RPDA, GSV-LPL M/terminal LCx-Dr. Hills-01/12/2025
Mild hyperglycemia
Conditions present prior to admission:
Hypertension.
Hyperlipidemia.
Non-Hodgkin's lymphoma 2017.
Fatty liver.
Diverticulitis/hemicolectomy.
Plan
Ventilator settings reviewed
FiO2 will be weaned
Minute ventilation will be adjusted
Arterial blood gases will be monitored
Spontaneous breathing trial will be attempted with hopeful extubation after anesthesia/sedation wear off
Pulmonary artery catheter parameters will be followed
Pressors/antihypertensive/inotropes/diuretics will be provided as needed
Monitor chest tube output
Monitor hemoglobin
Monitor platelet count and coags
Transfuse blood product if needed
CT surgery following chest tubes
Monitor blood sugar
Insulin drip per protocol
Aspiration precautions
VAP prevention protocol
DVT prophylaxis
Early nutrition
Early mobilization
Critical care statement: A total of 50 minutes of critical care time was provided for this patient today. This includes management of ventilator, spontaneous breathing trial, arterial blood gases, pressors, of unstable vital signs, evaluation of the
patient at bedside, reviewing the patient's pertinent medical records including radiographs, microbiology, laboratory evaluations, and discussion with primary team and critical care nursing.
Diagnostic data:
Chest x-ray 02/06/2025-NAD
CT chest 02/07/2025-no evidence for thoracic aortic aneurysm, linear densities both lungs compatible with linear atelectasis, fatty infiltration of the liver
Echocardiogram 02/07/2025-EF 50-55%, moderate mitral valve regurgitation, aortic valve sclerosis without stenosis
Data Reviewed
-
EKG: Report reviewed by me
Radiology: Report reviewed by me
CT Scan: Report reviewed by me
Medical Tests (Nuc Med, Echo etc): Report reviewed by me
Labs: Labs reviewed by me
Old Records: Reviewed
Critical Care Time (in minutes): 50
[2025-02-12 12:56] LABS: B.E. - POC 0.2 mmol/L; Glucose - POC 161 mg/dl (70-99); HCO3 - POC 25 mmol/L (21-28); Hematocrit - POC 33 % PCV (42-52); Hemodilution- POC Yes; Hemoglobin Calculated - POC 11.1; Ionized Calcium - POC 1.07 mmol/L (1.15-1.33); Lactate - POC 1.76 mmol/L (0.36-0.75); O2 Saturation %Calculated-POC 99.9 % (94-98); PCO2 - POC 38 mmHg (35-48); PO2 - POC 271 mmHg (83-108); POC Comment CPB; Potassium - POC 4.7 mmol/L (3.5-5.1); Sodium - POC 139 mmol/L (136-145); Specimen Type - POC Arterial; pH - POC 7.42 (7.35-7.45)
[2025-02-12 13:04] LABS: ACT+ - POC 533 Seconds (82-134)
[2025-02-12] MEDS: APRESOLINE PO (13:07)
[2025-02-12] MEDS: LOW STRENGTH ASPIRIN PO (13:07)
[2025-02-12] MEDS: TOPROL XL PO (13:08)
[2025-02-12 13:36] LABS: B.E. - POC -0.7 mmol/L; Glucose - POC 152 mg/dl (70-99); HCO3 - POC 24 mmol/L (21-28); Hematocrit - POC 31 % PCV (42-52); Hemodilution- POC Yes; Hemoglobin Calculated - POC 10.5; Ionized Calcium - POC 1.03 mmol/L (1.15-1.33); Lactate - POC 2.07 mmol/L (0.36-0.75); O2 Saturation %Calculated-POC 99.6 % (94-98); PCO2 - POC 40 mmHg (35-48); PO2 - POC 180 mmHg (83-108); POC Comment WARM; Potassium - POC 4.8 mmol/L (3.5-5.1); Sodium - POC 141 mmol/L (136-145); Specimen Type - POC Arterial; pH - POC 7.39 (7.35-7.45)
[2025-02-12 13:42] LABS: ACT+ - POC 186 Seconds (82-134)
[2025-02-12 13:46] LABS: ACT+ - POC 120 Seconds (82-134)
[2025-02-12 13:53] LABS: B.E. - POC -3.1 mmol/L; Glucose - POC 149 mg/dl (70-99); HCO3 - POC 22 mmol/L (21-28); Hematocrit - POC 30 % PCV (42-52); Hemodilution- POC Yes; Hemoglobin Calculated - POC 10.1; Ionized Calcium - POC 1.30 mmol/L (1.15-1.33); Lactate - POC 2.06 mmol/L (0.36-0.75); O2 Saturation %Calculated-POC 99.1 % (94-98); PCO2 - POC 39 mmHg (35-48); PO2 - POC 140 mmHg (83-108); POC Comment POST; Potassium - POC 3.9 mmol/L (3.5-5.1); Sodium - POC 141 mmol/L (136-145); Specimen Type - POC Arterial; pH - POC 7.36 (7.35-7.45)
--- NOTE | 2025-02-12 14:10 | W.IMMPOSTOP ---
Addendum entered and electronically signed by Negro Hills MD 02/12/25 15:12:
[id number]
Original Note:
Surgical Immed Post Op Note
-
CARDIAC SURGERY OPERATIVE NOTE:
Preoperative Dx:
MVCAD
Bifascicular block, RBBB and LAFB
Postoperative Dx:
Same
Procedures:
1) Median sternotomy
2) Takedown of DEANNA (narrow pedicle)
3) Endoscopic harvest of B/L GSV
4) CABG x 4 (DEANNA to LAD, GSV to D, GSV to RPDA, GSV to LPLB/terminal LCx)
5) ELAA (40mm AtriClip)
Surgeon:
Negro Hills M.D.
Assistants:
Werner CisnerosCChino; assistant pressman throughout, [id number] sternotomy closure
Kiera Santos-CChino; endoscopic harvest/prep of B/L GSV (RLE first, LLE GSV while on CPB), [id number] sternotomy closure
Anesthesia:
Sid Stein M.D. and Mojgan MichaudN.A.
Perfusion:
Romario MedinaCChinoPChino; XC: 111min, CPB: 160min
Findings:
DEANNA was healthy conduit w/ extremely brisk blood flow, ELD 2.50mm
RLE GSV was healthy conduit w/ ELD 3.5-4.0mm
LLE GSV was health conduit w/ ELD ranging from 3.0-3.5mm
LAD was visible on the epicardial surface, minor calcifications, ELD 2.50mm
D was visible on the epicardial surface, moderate proximal calcifications, ELD 2.50mm
Terminal LCx/LPLB was visible on the epicardial surface, moderate calcifications, ELD 2.50mm
RPDA was visible on the epicardial surface, no significant calcifications, ELD 1.75mm - anastomosis performed over 1mm shunt
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
Post-MONSE: LVEF 50%, mild MR, RV normal, FRANCESCA confirmed excluded, grade III atheromatous dz in aortic arch, calcium at STJ
Implants:
AtriCure AtriClip, LOT [id number], 40mm
Epicardial Bipolar pacing wire x 1 - sutured in place
CT x 4 (B/L pleural, inferior mediastinal, superior mediastinal)
Sternal wires x 7
Sternal 'X' plate w/ 4 - 14mm and 4 - 12mm screws
Sternal 'Square' plate w/ 4 - 8mm screws
Transfusions:
None
Complications:
None
Condition:
78 V-paced, 104/68, 99%
GTTS: levophed 4, insulin 1, precedex 0.5
Stable/guarded to CVICU
[2025-02-12] MEDS: TYLENOL PO ×2 (14:26→21:10)
[2025-02-12] MEDS: NOVOLOG FLEXPEN SC ×2 (14:26→15:37)
[2025-02-12 14:47] LABS: Glucose - Point of Care 146 mg/dl (70-99)
[2025-02-12 14:55] LABS: Hematocrit 35.9 % (39.0-52.0); Hemoglobin 12.4 g/dL (13.0-18.0); Platelet Count 205 10^3/uL (130-400)
[2025-02-12 14:58] LABS: B.E. -2.4 mmol/L; HCO3 23.2 mmol/L (21-28); O2 Saturation % 95.2 % (94-98); PCO2 42 mmHg (35-48); PO2 74 mmHg (83-108); Potassium 4.2 mMOL/L (3.5-5.1); Sodium 137 mMOL/L (136-145)
[2025-02-12 15:09] LABS: INR 1.48; PT 18.4 Sec (11.4-14.6)
[2025-02-12 15:10] LABS: APTT 31.5 Sec (23.4-35.0)
[2025-02-12] MEDS: ANCEF 10 IV ×2 (15:17)
[2025-02-12] MEDS: NSS 500 IV (15:17)
[2025-02-12] MEDS: CALCIUM GLUCONATE 100 IV (15:18)
[2025-02-12 15:23] LABS: Blood Urea Nitrogen 14 mg/dl (9-20); Estimated Creatinine Clearance 98 ml/min; Glucose 150 mg/dl (70-99); Magnesium 2.9 mg/dl (1.6-2.3)
--- NOTE | 2025-02-12 15:29 | PTCARENOTE ---
Patient received from [facility] at 1435; Sedated and intubated; 100% V paced rhythm on monitor; VSS; Distant heart sounds; Epicardial V wires present with temporary pacemaker settings VVI 70/15/2.0; +1 DP and +2 radial pulses present; Lungs diminished at
bases; ETT size 8 positioned and secured at 21 cm right lip; Ventilator settings SIMV 12/550/5/5 FiO2 40%; CTx4 to -20 cm wall suction draining bloody drainage - no air leak, tidaling, or crepitus noted; Hypoactive BS; Smith catheter in place
draining clear, blood tinged urine; Sternal midline incision covered with Aquacel dressing - scant amount of serosanguineous drainage, right groin puncture glued, approximated, and ecchymotic - CDI, left upper thigh puncture glued, approximated, and
ecchymotic - CDI, right leg wrapped in GREGORIA wrap - CDI, left leg wrapped in GREGORIA wrap - CDI; Right radial A-line in place, SLIC present in RIJ Cordis at - all lines zeroed and leveled; PIVx2 - #18 LAC and #20 RAC; Levo, insulin, and precedex infusing
- see nursing flowsheets for further details; iCal repleted x1; see nursing documentation for further details.
[2025-02-12] MEDS: NEURONTIN PO ×2 (15:37→22:42)
[2025-02-12] MEDS: PACERONE PO ×2 (15:37→21:34)
[2025-02-12 16:08] LABS: Glucose - Point of Care 148 mg/dl (70-99)
--- NOTE | 2025-02-12 16:54 | PTCARENOTE ---
RT in room and patient placed on CPAP trial at 1655; EPOC ABG due at 1723
[2025-02-12 17:01] LABS: Glucose - Point of Care 150 mg/dl (70-99)
[2025-02-12 17:41] LABS: B.E. -2.6 mmol/L; HCO3 23.7 mmol/L (21-28); O2 Saturation % 92.6 % (94-98); PCO2 46 mmHg (35-48); PO2 67 mmHg (83-108); Potassium 4.5 mMOL/L (3.5-5.1); Sodium 136 mMOL/L (136-145)
[2025-02-12] MEDS: SODIUM BICARBONATE 25 MEQ IV (17:54)
--- NOTE | 2025-02-12 18:00 | PTCARENOTE ---
EPOC ABG reviewed at bedside with CVNP Bonita C.; 1/2 amp of Bicarb given as per orders; RT at bedside; Patient extubated at 1800 and placed on 10L Midflow NC; IS 250 ml
--- NOTE | 2025-02-12 18:07 | RESPNOTE ---
pt extubated to 10mid flow, 02 sats of 93% noted
[2025-02-12 18:10] LABS: Glucose - Point of Care 122 mg/dl (70-99)
[2025-02-12] MEDS: LIPITOR PO (18:10)
[2025-02-12] MEDS: LOW STRENGTH ASPIRIN 81 MG PO (18:44)
[2025-02-12 18:46] LABS: B.E. -0.4 mmol/L; HCO3 25.4 mmol/L (21-28); O2 Saturation % 96.5 % (94-98); PCO2 45 mmHg (35-48); PO2 79 mmHg (83-108); Potassium 4.5 mMOL/L (3.5-5.1); Sodium 137 mMOL/L (136-145)
[2025-02-12 18:47] LABS: Hematocrit 36.8 % (39.0-52.0); Hemoglobin 12.7 g/dL (13.0-18.0); Platelet Count 186 10^3/uL (130-400)
[2025-02-12 19:08] LABS: Glucose - Point of Care 117 mg/dl (70-99)
--- NOTE | 2025-02-12 20:00 | PTCARENOTE ---
assumed care of pt from previous RN. pt drowsy, oriented x4. bedrest s/p CVOR. R IJ cordis w/ SLIC. R radial a-line. all lines leveled,zeroed, flushed. SR w/ 1st degree AVB, RBBB. temp-epicardial V-wires w/ back up settings VVI 60/15/2. POX 97% on
10L midflow. CT x4 (R & L pleural, mediastinal x2) to -20cm wall suction, draining sanguineous drainage. abd s/n, round, obese, hypoactive BS. luciano catheter draining clear, yellow colored urine. all surgical sites stable, CDI. PIV x2 intact. see
worklist for complete nursing assessment, interventions, VS, and I&Os.
[2025-02-12] MEDS: SENOKOT PO (20:01)
[2025-02-12] MEDS: TORADOL 15 MG IV (20:06)
[2025-02-12] MEDS: ANCEF 5 IV (20:06)
[2025-02-12 21:05] LABS: Lipoprotein a (Lp a) 65 mg/dL (<=29)
[2025-02-12] MEDS: OFIRMEV 100 IV (21:08)
[2025-02-12 21:12] LABS: Glucose - Point of Care 113 mg/dl (70-99)
[2025-02-12 23:06] LABS: Glucose - Point of Care 100 mg/dl (70-99)
[2025-02-13] VITALS (25 sets, daily range): BP systolic 93–117; BP diastolic 54–80; PULSE 77; O2SAT 93–94; BMI 33.4
--- NOTE | 2025-02-13 | PTCARENOTE ---
pt A&O x4. assessment remains otherwise unchanged. VSS. CT drainage WNL.
[2025-02-13 00:34] LABS: B.E. -1.0 mmol/L; HCO3 24.3 mmol/L (21-28); O2 Saturation % 98.4 % (94-98); PCO2 42 mmHg (35-48); PO2 107 mmHg (83-108); Potassium 4.6 mMOL/L (3.5-5.1)
[2025-02-13 00:36] LABS: O2 Therapy 8L midflow
[2025-02-13] MEDS: CALCIUM GLUCONATE 100 IV (01:07)
[2025-02-13] MEDS: TORADOL 15 MG IV ×2 (01:07→08:08)
[2025-02-13 01:14] LABS: Glucose - Point of Care 120 mg/dl (70-99)
[2025-02-13 03:10] LABS: Glucose - Point of Care 103 mg/dl (70-99)
--- NOTE | 2025-02-13 03:30 | PTCARENOTE ---
no acute changes. VSS. CT drainage WNL. AM labs collected and sent. EKG completed. AM plan of care discussed w/ pt, pt in agreement.
[2025-02-13 03:34] LABS: Hematocrit 35.6 % (39.0-52.0); Hemoglobin 12.1 g/dL (13.0-18.0); Mean Corp Hgb Conc. 34.0 g/dL (33.0-37.0); Mean Corpuscular Volume 88.6 fL (80.0-94.0); Platelet Count 190 10^3/uL (130-400); Red Cell Dist. Width 12.8 % (11.5-14.5)
[2025-02-13 04:05] LABS: Blood Urea Nitrogen 20 mg/dl (9-20); Calcium 9.3 mg/dl (8.4-10.2); Carbon Dioxide 26 mmol/L (22-30); Chloride 108 mmol/L (98-107); Estimated Creatinine Clearance 78 ml/min; Glucose 103 mg/dl (70-99); Magnesium 2.3 mg/dl (1.6-2.3); Potassium 4.7 mmol/L (3.5-5.1); Sodium 140 mmol/L (135-145); eGFR > 60.00
[2025-02-13] MEDS: ANCEF 5 IV ×2 (04:51→13:05)
[2025-02-13] MEDS: TYLENOL 975 MG PO ×3 (04:51→21:03)
[2025-02-13] MEDS: FLEXERIL 5 MG PO (04:51)
[2025-02-13 04:56] LABS: Glucose - Point of Care 107 mg/dl (70-99)
--- NOTE | 2025-02-13 06:13 | W.PN.CT ---
Today's Communication / Plan
-
-pod #1
-no significant issues overnight
-drips: insulin only
-CT outputs: 2 meds 120/140, 2 pleur 75/110 in 12/24 hrs
-required upto 10 L O2 via midflow- currently on 6L O2 with pOx 93-94% - wean as tolerated
-delined
-dcd Smith
-continue current meds
-encourage IS, OOB
Assessment / Plan
-
-mv-CAD- s/p CABG x 4 (DEANNA to LAD, GSV to D, GSV to RPDA, GSV to LPLB/terminal LCx); ELAA (40mm AtriClip) by Dr. Hills on 02/12/22, pod #1
-Post-MONSE: LVEF 50%, mild MR, RV normal, FRANCESCA confirmed excluded, grade III atheromatous dz in aortic arch, calcium at STJ
-HTN
-HLD
-RBBB/LAFB
-TTE on 10/31/24 demonstrating normal LV size and systolic function with EF 55-60%
-Non-Hodgkin's lymphoma 2017 with partial thyroidectomy and chemo. Pt had no radiation (refused)
-Elevated TSH 9.57 with nl free T4 of 0.75 on 02/05/25
-Coronary CT angio 01/24/25 revealed enlargement of the left lobe of the liver and caudate lobe, suggesting mild hepatic cirrhosis. Also, mild diffuse pancreatic parenchymal atrophy and lipomatosis; mildly enlarged spleen and likely complex cyst at
R kidney.
-CT 02/07/25: fatty liver, suspected early cirrhosis
-hx diverticulitis with hemicolectomy
-Cholecystectomy
-L knee sx
-intermittent L lower extremity swelling with paresthesia and discoloration, suspected neuropathy.
Echo 02/07/25:
1. Normal left ventricular size, and systolic function. Estimated LVEF 50-55%.
2. Basal inferior hypokinesis.
3. Mild/moderate mitral valve regurgitation.
4. Aortic valve sclerosis without stenosis.
5. Trivial pericardial effusion is present.
6. No prior study for comparison.
Chest CT 02/07/25:
-There is no evidence for thoracic aortic aneurysm.
-Coronary artery calcifications are present in this patient scheduled for cardiothoracic surgery.
-Thin linear densities within both lower lungs compatible with linear atelectasis.
-Minimal pericardial effusion, unlikely to be clinically significant.
-Fatty infiltration the liver, with morphology that can be associated with early cirrhosis. Please correlate with any risk factors for cirrhosis.
- Acute postop blood loss anemia - stable, no transfusion
- Acute postop atelectasis/ pulmonary insufficiency
- Acute postop hypovolemia with subsequent hypervolemia
Discussed patient care with: Nursing and Care Team
Subjective
-
Date of Service: February 13, 2025
Objective Data
-
Lab Results
02/13/25 03:10
02/13/25 03:10
PT 18.4 Sec (11.4-14.6) H 02/12/25 14:42
INR 1.48 02/12/25 14:42
APTT 31.5 Sec (23.4-35.0) 02/12/25 14:42
Vital Signs
Vital Signs
Temp Pulse Resp BP Pulse Ox
99 F 68 17 103/61 92
02/13/25 04:00 02/13/25 05:45 02/13/25 05:45 02/13/25 05:00 02/13/25 05:45
CT Intake/Output/Weight
02/12/25 02/12/25 02/13/25
06:59 18:59 06:59
Intake Total 295.4 / 526.7 231.3 / 526.7
Output Total 525 / 1130 605 / 1130
Balance -229.6 / -603.3 -373.7 / -603.3
SaO2: 92
Physical Exam
-
General: Awake and AOx3
Cardiovascular: Regular rate & rhythm, No Murmurs and Rub
Respiratory: Decreased Breath Sounds
Sternum: Stable
Incision: Clean, Dry and Intact
Extremities: Edema +1
Abdomen: soft, nontender, mildly distended
Data Reviewed
-
Lab Results: Results Reviewed
Medications: Active Meds Reviewed
Chest X-Ray: Report Reviewed and Image Reviewed
ECG: Report Reviewed and Image Reviewed
--- NOTE | 2025-02-13 06:38 | W.PN.CD ---
Today's Communication / Plan
-
remains in sinus. hemodynamically stable
continue post op care per CT
Impression / Plan
-
s/p CABG x 4 (DEANNA to LAD, GSV to D, GSV to RPDA, GSV to LPLB/terminal LCx); ELAA (40mm AtriClip) by Dr. Hills on 02/12/22, pod #1
- multivessel CAD
- transferred to [facility] for CABG evaluation.
- pre op Echo with EF 50 to 55%
- stable post op in NSR
- rub on exam with chest tubes in .
- continue post op care per CT surgery
h/o HTN -continue to monitor.post op
HLD -statinstable
RBBB/LAFB - chronic, stable.
Physical Exam
Vital Signs/Labs
Vital Signs
Temp Pulse Resp BP Pulse Ox
99 F 77 19 99/58 92
02/13/25 04:00 02/13/25 06:15 02/13/25 06:15 02/13/25 06:00 02/13/25 06:20
02/11/25 02/12/25 02/13/25
06:59 06:59 06:59
Actual Weight 95.3 kg 94.3 kg
02/13/25 03:10
02/13/25 03:10
PT 18.4 Sec (11.4-14.6) H 02/12/25 14:42
INR 1.48 02/12/25 14:42
APTT 31.5 Sec (23.4-35.0) 02/12/25 14:42
Magnesium 2.3 mg/dl (1.6-2.3) 02/13/25 03:10
Physical Exam
Constitutional: No acute distress
Cardiovascular: Rhythm & rate is regular and Other (rub on exam. chest tubes remain intacke. post op sternal dressing)
Respiratory: Wheeze Absent and Rhonchi Absent
GI: Soft and Non tender
Neuro/Psych: Alert, Oriented and AO x 3
Data Reviewed
-
Date of Service: February 13, 2025
Medical Decision Making: Reviewed Test Results
EKG: Tracing Personally Visualized and interpreted (nsr bifascicular block)
Echo: Report Reviewed by me
X-Ray/CT/US/MRI/NUC/PET: Report Reviewed by me
Medical Tests (PFT, Pathology etc): Image Personally Visualized and interpreted
Labs: Labs Reviewed by me
[2025-02-13 07:03] LABS: Glucose - Point of Care 136 mg/dl (70-99)
[2025-02-13] MEDS: ROXICODONE 2.5 MG PO (07:04)
--- NOTE | 2025-02-13 07:15 | W.PN.ANS.POP ---
Anesthesia Post Operative
- Anesthesia Post Op Note
Vital Signs Stable-See Nursing Note: Yes
Airway Patent: Yes
Adequate Pain Control: Yes
Change in Mental Status: No
Current Postoperative Nausea & Vomiting: No
Anesthesia Complications: No
General Anesthetic Recall: No
Unplanned Admission: No
Post Op Hydration Adequate: Yes
- -
Selected Entries
02/13/25
07:00 02/13/25
07:00 02/13/25
07:00
Pulse 77
Rhythm: Normal sinus
rhythm
Blood pressure 98/61
MAP (cuff-[facility] Monitor) 73
SaO2 95
Nasal Cannula flow liters per minute 6
--- NOTE | 2025-02-13 07:29 | W.PN.INTV ---
Today's Communication / Plan
Recommendations
Insulin drip continues-consider discontinuation after 24 hours
Wean FiO2
Incentive spirometry
Monitor chest tube output
Increase activity
Likely transfer to telemetry-design draftsman will sign off-call pulmonary with respiratory issues
Assessment
-
69-year-old non-smoking male with a history of hypertension, hyperlipidemia, non-Hodgkin's lymphoma 2017, fatty liver, diverticulitis with hemicolectomy found to have significant CAD and underwent CABG-design draftsman consulted for postoperative
ventilator/critical care management 02/12/2025.
Multivessel CAD with preoperative preserved EF
Status post CABG x 4-Ligia-LAD, GSV-D, GSV-RPDA, GSV-LPL M/terminal LCx-Dr. Hills-01/12/2025
Mild hyperglycemia
Conditions present prior to admission:
Hypertension.
Hyperlipidemia.
Non-Hodgkin's lymphoma 2017.
Fatty liver.
Diverticulitis/hemicolectomy.
Plan
Tolerated extubation
Wean FiO2
Encourage incentive spirometry
Increase activity
Aspiration precautions
Pulmonary artery catheter and arterial line will be removed
Pressors have been weaned
Continue to monitor chest tube output
Follow hemoglobin
Continue to follow platelet count and coags
Transfuse blood product as needed
CT surgery following chest tubes as well
Follow blood sugar
Insulin supplementation continues as needed
Early nutrition
Early mobilization
DVT prophylaxis
Patient will be transferred to telemetry phase if insulin drip discontinued-call pulmonary if respiratory issues arise
Reviewed the patient�s pertinent medical records including radiographs, microbiology, laboratory evaluations, and��discussion with primary team, and critical care nursing.
Diagnostic data:
Chest x-ray 02/06/2025-NAD
CT chest 02/07/2025-no evidence for thoracic aortic aneurysm, linear densities both lungs compatible with linear atelectasis, fatty infiltration of the liver
Echocardiogram 02/07/2025-EF 50-55%, moderate mitral valve regurgitation, aortic valve sclerosis without stenosis
Subjective Dataa
Subjective Data
Date of Service:
Date of Service: February 13, 2025
Chief Complaint: Sap Bw Consultant Follow Up, Pulmonary Follow Up and Vent Management Follow Up
Subjective:
Tolerated extubation, no complaints of shortness of breath, pain controlled, no cough, no weakness
Review of Systems
HEENT: Other (Per HPI)
Objective Data
Data Reviewed
Vital Signs / I&O / Oxygen:
Vital Signs
Temp Pulse Resp BP Pulse Ox
99 F 77 19 98/61 94
02/13/25 04:00 02/13/25 07:00 02/13/25 06:30 02/13/25 07:00 02/13/25 07:00
Intake and Output
02/12/25 02/13/25 02/14/25
06:59 06:59 06:59
Intake Total 538.7 / 548.7
Output Total 1190 / 1230 40 / 40
Balance -651.3 / -681.3 -30 / -30
SaO2 [CPAP/PSV] 90
SaO2 [SIMV] 98
SaO2 94
Nasal Cannula flow liters per 6
minute
Physical Exam
General: Respiratory Distress (n) and Comfortable
HEENT: Normocephalic, Anicteric and Moist Mucous Membranes
Cardiovascular: Regular Rhythm and Rub
Respiratory: Wheeze (n), Crackles (Few basilar), Rhonchi (n), Non-Labored Respirations, Accessory Resp Muscle Use (n) and Stridor (n)
GI: Soft, Non Distended and Non Tender
Neurology: Awake, Alert and No Motor Deficits
Skin: Warm, Good Color, Cyanosis (n) and Jaundice (n)
Labs/Micro/Reports
Lab Data
02/13/25 03:10
02/13/25 03:10
Laboratory Results
02/12/25 02/12/25 02/12/25
14:41 14:42 17:35
PT 18.4 H
INR 1.48
APTT 31.5
pH 7.35 7.32 L
pCO2 42 46
pO2 74 L 67 L
HCO3 23.2 23.7
O2 Delivery Level
02/12/25 02/13/25
18:40 00:20
PT
INR
APTT
pH 7.36 7.37
pCO2 45 42
pO2 79 L 107
HCO3 25.4 24.3
O2 Delivery Level 8l midflow
--- NOTE | 2025-02-13 07:50 | PTCARENOTE ---
Patient received from car shifter RN; AAOx3, responds spontaneously to RN and follows commands; SR with RBBB on monitor; VSS; Friction rub present; Epicardial V wire present with temporary pacemaker settings VVI 50/15/2.0; +1 generalized anasarca;
+1 DP and +2 radial pulses present; Shallow respirations; Lungs diminished at bases; SpO2 95-98% on 6L NC; IS 500 ml; CTx4 to -20 cm wall suction draining serosanguineous drainage - no air leak, tidaling, or crepitus noted; Hypoactive BS; DTV;
Sternal midline incision covered with Aquacel dressing - scant amount of old drainage, right groin puncture glued, approximated, and ecchymotic - CDI, left upper thigh puncture glued, approximated, and ecchymotic - CDI, right leg wrapped in GREGORIA wrap
- CDI, left leg wrapped in GREGORIA wrap - CDI; RIJ Cordis with KVO infusing; PIVx2 - #18 LAC and #20 RAC; Insulin infusing - see nursing flowsheets for further details; see nursing documentation for further details.
[2025-02-13] MEDS: PROTONIX 40 MG PO (08:07)
[2025-02-13] MEDS: LOPRESSOR 12.5 MG PO ×2 (08:07→19:45)
[2025-02-13] MEDS: PLAVIX 75 MG PO (08:07)
[2025-02-13] MEDS: SENOKOT 8.6 MG PO ×2 (08:07→19:45)
[2025-02-13] MEDS: MAGNESIUM OXIDE 400 MG PO ×2 (08:07→19:45)
[2025-02-13] MEDS: LOW STRENGTH ASPIRIN 81 MG PO (08:07)
[2025-02-13] MEDS: PACERONE 200 MG PO ×3 (08:07→21:03)
[2025-02-13] MEDS: NEURONTIN 100 MG PO ×3 (08:07→21:03)
[2025-02-13] MEDS: LIDOCAINE 4% PATCH 1 PATCH TOPICAL (08:08)
[2025-02-13] MEDS: BACTROBAN 2% OINTMENT 1 APPLIC NASAL ×2 (08:08→19:45)
[2025-02-13] MEDS: NOVOLOG FLEXPEN SC ×3 (09:05→16:59)
[2025-02-13 09:07] LABS: Glucose - Point of Care 143 mg/dl (70-99)
--- NOTE | 2025-02-13 09:43 | CM ---
Reviewed chart. Met with and Mrs. Townsend to review discharge plans. He states he is feeling okay. He states prior to admission he resides with his spouse in a apartment with five steps to enter. He states prior to admission he was independent
with ambulation and adls. He states prior to admission he was independent with ambulation and adls.. He states he does not have any DME in the home. Medical work-up in progress. The discharge plan is to return home with his spouse and a home
visit by the Transitional Care Nurse when medically stable.
[2025-02-13] MEDS: COLCHICINE 0.3 MG PO (10:01)
[2025-02-13] MEDS: ZOFRAN 4 MG IV ×2 (10:48→21:03)
[2025-02-13 11:03] LABS: Glucose - Point of Care 130 mg/dl (70-99)
--- NOTE | 2025-02-13 11:26 | PN.DE.MGMTRT ---
Insulin Management
- -
02/13/2025 Diabetes Management Consult
Patient admitted to [facility] 02/06 with c/o Chest Pain with significant dyspnea and headache while carrying heavy groceries from [employer]. On 02/06/25 he underwent cardiac cath revealing mv-CAD and was transferred to for an evaluation for CABG. Prior
to admission was diagnosed with pre diabetes, taking no medication. A1C on admission 6.2%, cr 1 eGFR > 60.
POD 1 s/p CABG x 4. Patient is awake alert and oriented out of bed in chair able to discuss pre diabetes. at bedside and very supportive. Patient states no one ever told him he had pre diabetes. Reviewed threshold of 6.5% for diagnosis of
diabetes. Patient currently receiving glycemic protocol insulin infusion requiring 2.3 to 3.5 units of insulin per hour. Will continue glycemic protocol insulin infusion today and assess for readiness to transition to corrective insulin. Will
consider Farxiga.
Discussed with nurse
Will follow.
Diabetes History
- -
Pre-Admission Diabetes Regimen
02/12/25 02/13/25
14:42 03:10
Creatinine 0.8 1.0
Lab Results
Hemoglobin A1c 6.2 % (4.0-5.9) H 02/07/25 03:48
Insulin Pump Settings
IP Diabetes Regimen
02/12/25 02/12/25 02/12/25
14:42 16:07 16:59
Glucose 150 H
POC Glucose 146 H 148 H 150 H
02/12/25 02/12/25 02/12/25
18:05 19:06 21:07
Glucose
POC Glucose 122 H 117 H 113 H
02/12/25 02/13/25 02/13/25
23:01 01:05 03:09
Glucose
POC Glucose 100 H 120 H 103 H
02/13/25 02/13/25 02/13/25
03:10 04:55 07:01
Glucose 103 H
POC Glucose 107 H 136 H
02/13/25 02/13/25
09:04 11:00
Glucose
POC Glucose 143 H 130 H
Meal type: Breakfast
Meal type: Lunch
Amount consumed: 75%
Patient Education
[2025-02-13] MEDS: REGLAN 10 MG IV (11:45)
[2025-02-13] MEDS: NSS IV (13:05)
[2025-02-13 13:11] LABS: Glucose - Point of Care 117 mg/dl (70-99)
--- NOTE | 2025-02-13 13:33 | PTCARENOTE ---
Patient ambulating in hallway with RN and cardiac; V-wire insulated; Oxygen weaned to 1L NC; Patient complaining of gas pain and nausea - patient given PRN Zofran and ambulating in room with RN; About 30 minutes after PRN Zofran - patient
complaining of nausea again; CVNP Nahomi Palm notified and IV Reglan given with good effect; Patient able to pass gas and now resting comfortably in chair at this time
[2025-02-13] MEDS: NOVOLOG FLEXPEN 4 UNITS SC (14:22)
[2025-02-13 15:17] LABS: Glucose - Point of Care 124 mg/dl (70-99)
[2025-02-13 16:29] LABS: Glucose - Point of Care 139 mg/dl (70-99)
[2025-02-13] MEDS: NOVOLIN R INSULIN INFUSION 100 IV (16:43)
[2025-02-13] MEDS: LIPITOR 40 MG PO (16:59)
--- NOTE | 2025-02-13 17:15 | PTCARENOTE ---
Patient still due to void; Patient bladder scanned at 1635 for 220 ml in bladder - CVNP Nahomi Palm notified and more time give to urinate; Patient ambulating in hallways; No further nausea at this time
[2025-02-13 17:33] LABS: Glucose - Point of Care 112 mg/dl (70-99)
[2025-02-13 18:29] LABS: Glucose - Point of Care 95 mg/dl (70-99)
[2025-02-13 19:44] LABS: Glucose - Point of Care 101 mg/dl (70-99)
[2025-02-13] MEDS: REMOVE LIDOCAINE PATCH 1 PATCH REMOVE (19:45)
--- NOTE | 2025-02-13 20:00 | PTCARENOTE ---
assumed care of pt from previous RN. pt A&Ox4, resting in bed at time of assessment. SR on tele-monitor. temp epicardial v-wires insulated. POX 95% on [address] x4 (R & L pleural, Mediastinal x2) to -20cm wall suction, draining sanguineous
drainage. abd s/n, round, obese. hypoactive BS. -N/V at this time. pt reports poor appetite. pt due to void. see bladder scan intervention. all surgical sites stable, CDI. R IJ cordis w/ KVO. PIV x2 intact. see worklist for complete nursing
assessment, interventions, VS, and I&Os.
[2025-02-13] MEDS: ROXICODONE 5 MG PO (21:03)
[2025-02-13 22:01] LABS: Glucose - Point of Care 128 mg/dl (70-99)
[2025-02-13 23:56] LABS: Glucose - Point of Care 112 mg/dl (70-99)
[2025-02-14] VITALS (18 sets, daily range): BP systolic 95–133; BP diastolic 54–80; PULSE 71; O2SAT 95–96; BMI 33.6
--- NOTE | 2025-02-14 | PTCARENOTE ---
assessment remains unchanged. VSS. CT drainage WNL. no c/o pain at this time.
[2025-02-14 02:10] LABS: Glucose - Point of Care 82 mg/dl (70-99)
[2025-02-14 02:26] LABS: Hematocrit 34.4 % (39.0-52.0); Hemoglobin 11.2 g/dL (13.0-18.0); Mean Corp Hgb Conc. 32.6 g/dL (33.0-37.0); Mean Corpuscular Volume 92.7 fL (80.0-94.0); Platelet Count 190 10^3/uL (130-400); Red Cell Dist. Width 13.0 % (11.5-14.5)
[2025-02-14 02:46] LABS: Blood Urea Nitrogen 31 mg/dl (9-20); Calcium 8.6 mg/dl (8.4-10.2); Carbon Dioxide 29 mmol/L (22-30); Chloride 104 mmol/L (98-107); Estimated Creatinine Clearance 79 ml/min; Glucose 78 mg/dl (70-99); Magnesium 2.4 mg/dl (1.6-2.3); Potassium 4.2 mmol/L (3.5-5.1); Sodium 134 mmol/L (135-145); eGFR > 60.00
--- NOTE | 2025-02-14 02:59 | W.PN.CT ---
Today's Communication / Plan
-
-pod #2
-no issues overnight
-drips: insulin
-CT outputs: 2 meds 60/195, 2 pleur 25/155 in 12/24 hrs
-current meds (ASA, Plavix, Colchicine, Lipitor, Lopressor, Amio, Protonix)
-encourage IS, OOB
Assessment / Plan
-
-mv-CAD- s/p CABG x 4 (DEANNA to LAD, GSV to D, GSV to RPDA, GSV to LPLB/terminal LCx); ELAA (40mm AtriClip) by Dr. Hills on 02/12/22, pod #2
-Post-MONSE: LVEF 50%, mild MR, RV normal, FRANCESCA confirmed excluded, grade III atheromatous dz in aortic arch, calcium at STJ
-HTN
-HLD
-RBBB/LAFB
-TTE on 10/31/24 demonstrating normal LV size and systolic function with EF 55-60%
-Non-Hodgkin's lymphoma 2017 with partial thyroidectomy and chemo. Pt had no radiation (refused)
-Elevated TSH 9.57 with nl free T4 of 0.75 on 02/05/25
-Coronary CT angio 01/24/25 revealed enlargement of the left lobe of the liver and caudate lobe, suggesting mild hepatic cirrhosis. Also, mild diffuse pancreatic parenchymal atrophy and lipomatosis; mildly enlarged spleen and likely complex cyst at
R kidney.
-CT 02/07/25: fatty liver, suspected early cirrhosis
-hx diverticulitis with hemicolectomy
-Cholecystectomy
-L knee sx
-intermittent L lower extremity swelling with paresthesia and discoloration, suspected neuropathy.
Echo 02/07/25:
1. Normal left ventricular size, and systolic function. Estimated LVEF 50-55%.
2. Basal inferior hypokinesis.
3. Mild/moderate mitral valve regurgitation.
4. Aortic valve sclerosis without stenosis.
5. Trivial pericardial effusion is present.
6. No prior study for comparison.
Chest CT 02/07/25:
-There is no evidence for thoracic aortic aneurysm.
-Coronary artery calcifications are present in this patient scheduled for cardiothoracic surgery.
-Thin linear densities within both lower lungs compatible with linear atelectasis.
-Minimal pericardial effusion, unlikely to be clinically significant.
-Fatty infiltration the liver, with morphology that can be associated with early cirrhosis. Please correlate with any risk factors for cirrhosis.
- Acute postop blood loss anemia - stable, no transfusion
- Acute postop atelectasis/ pulmonary insufficiency
- Acute postop hypovolemia with subsequent hypervolemia
Discussed patient care with: Nursing and Care Team
Subjective
-
Date of Service: February 14, 2025
Objective Data
-
Lab Results
02/14/25 02:09
02/14/25 02:09
PT 18.4 Sec (11.4-14.6) H 02/12/25 14:42
INR 1.48 02/12/25 14:42
APTT 31.5 Sec (23.4-35.0) 02/12/25 14:42
Vital Signs
Vital Signs
Temp Pulse Resp BP Pulse Ox
98.2 F 66 12 113/62 93
02/14/25 00:00 02/14/25 02:00 02/14/25 02:00 02/14/25 02:00 02/14/25 02:00
CT Intake/Output/Weight
02/13/25 02/13/25 02/14/25
06:59 18:59 06:59
Intake Total 243.3 / 548.7 1115.6 / 1215.6 100.0 / 1215.6
Output Total 665 / 1230 265 / 650 385 / 650
Balance -421.7 / -681.3 850.6 / 565.6 -285.0 / 565.6
SaO2: 93
Physical Exam
-
General: Awake and AOx3
Cardiovascular: Regular rate & rhythm, No Murmurs and Rub
Respiratory: Decreased Breath Sounds
Sternum: Stable
Incision: Clean, Dry and Dressing Intact
Extremities: Edema +1
Abdomen: soft, nontender, nondistended, + bowel sounds
Data Reviewed
-
Lab Results: Results Reviewed
Medications: Active Meds Reviewed
Chest X-Ray: Report Reviewed and Image Reviewed
ECG: Report Reviewed and Image Reviewed
[2025-02-14 04:01] LABS: Glucose - Point of Care 84 mg/dl (70-99)
[2025-02-14] MEDS: TYLENOL 975 MG PO ×3 (04:20→21:03)
[2025-02-14] MEDS: ROXICODONE 5 MG PO ×2 (04:20→09:57)
[2025-02-14 06:04] LABS: Glucose - Point of Care 106 mg/dl (70-99)
[2025-02-14 07:24] LABS: Glucose - Point of Care 111 mg/dl (70-99)
--- NOTE | 2025-02-14 07:45 | PN.DE.MGMTRT ---
Insulin Management
- -
02/14/2025: Diabetes Management follow up
Patient admitted to [facility] 02/06 with c/o Chest Pain with significant dyspnea and headache while carrying heavy groceries from [employer]. On 02/06/25 he underwent cardiac cath revealing MV-CAD and was transferred to for an evaluation for CABG. Prior
to admission was diagnosed with pre diabetes, taking no medication. A1C on admission 6.2%, Cr 1 eGFR > 60.
Patient is awake alert and oriented out of bed, ambulating in hallway with PT, able to discuss pre diabetes.
POD #2 s/p CABG x 4. at bedside and very supportive.
Patient states no one ever told him he had pre diabetes. Reviewed threshold of 6.5% for diagnosis of diabetes.
Patient currently receiving glycemic protocol insulin infusion requiring 0.3 to 3.5 units of insulin per hour.
Will transition off drip to Farxiga and corrective insulin with meals. Per CM, copay is $145 for 90 day supply, pt is agreeable to the med, Rx sent to his Pharmacy.
Discussed with nurse. Will cont to follow.
Diabetes History
- -
Type of Diabetes: 2
Pre-Admission Diabetes Regimen
02/14/25
02:09
Creatinine 1.0
Lab Results
Hemoglobin A1c 6.2 % (4.0-5.9) H 02/07/25 03:48
Insulin Pump Settings
IP Diabetes Regimen
02/13/25 02/13/25 02/13/25
09:04 11:00 13:07
Glucose
POC Glucose 143 H 130 H 117 H
02/13/25 02/13/25 02/13/25
15:15 16:28 17:31
Glucose
POC Glucose 124 H 139 H 112 H
02/13/25 02/13/25 02/13/25
18:28 19:42 21:59
Glucose
POC Glucose 95 101 H 128 H
02/13/25 02/14/25 02/14/25
23:55 02:08 02:09
Glucose 78
POC Glucose 112 H 82
02/14/25 02/14/25 02/14/25
03:59 06:02 07:23
Glucose
POC Glucose 84 106 H 111 H
Meal type: Dinner
Meal type: Breakfast
Amount consumed: 0
Amount consumed: 75%
Patient Education
[2025-02-14] MEDS: LOW STRENGTH ASPIRIN 81 MG PO (08:30)
[2025-02-14] MEDS: COLCHICINE 0.3 MG PO (08:30)
[2025-02-14] MEDS: LOPRESSOR 12.5 MG PO ×2 (08:30→20:16)
[2025-02-14] MEDS: PROTONIX 40 MG PO (08:30)
[2025-02-14] MEDS: MAGNESIUM OXIDE 400 MG PO (08:30)
[2025-02-14] MEDS: NEURONTIN 100 MG PO ×3 (08:30→21:03)
--- NOTE | 2025-02-14 08:30 | PTCARENOTE ---
Assumed care of patient at 0700. Pt is awake, alert, and oriented. No complaints of pain at this time. Pt SR with BBB, HR 78. BP 118/57 MAP 75. Epicardial V wire insulated. Pt with audible rub. Pulse oximetry 97% on 2L nasal cannula. Mediastinal
chest tubes x2 and left/right pleural chest tubes in place at -20 suctions, no sign of air leak or crepitus. Pt tolerating PO diet. Remains on insulin gtt at this time per glycemic protocol. Midsternal incision with post-surgical dressing in place.
Bilateral leg incisions and groin punctures approximated and GOLF MANAGER. Right IJ cordis in place with KVO. Pt currently OOB in chair with call reyes within reach and at bedside.
[2025-02-14] MEDS: LIDOCAINE 4% PATCH 1 PATCH TOPICAL (08:31)
[2025-02-14] MEDS: PACERONE 200 MG PO ×3 (08:31→21:01)
[2025-02-14] MEDS: SENOKOT 8.6 MG PO ×2 (08:31→20:16)
[2025-02-14] MEDS: BACTROBAN 2% OINTMENT 1 APPLIC NASAL ×2 (08:31→20:16)
[2025-02-14] MEDS: PLAVIX 75 MG PO (08:31)
[2025-02-14] MEDS: NOVOLOG FLEXPEN 4 UNITS SC (08:32)
--- NOTE | 2025-02-14 09:30 | CM ---
Addendum entered by Farnaz Levy 02/14/25 11:28:
Asked to check co-pay for Farxiga 10 mg po. Telephone call to [employer] to check on co-pay. His co-pay would be $146.68 for ninety day supply. Reviewed co-pay with him. He is agreeable to co-pay with the hope that when the drug
goes generic in July the cost will go down. Updated Diabetic HR CLERK regarding above.
Original Note:
Reviewed chart. Met with and Mrs. Townsend to review discharge plans. He states he is feeling okay. Prior to admission he resides with his spouse in a apartment with five steps to enter. Prior to admission he was independent with ambulation and
adls. Prior to admission he was independent with ambulation and adls.. He does not have any DME in the home. He has a prescription plan. He states his spouse will be home to assist in his care if needed. We reviewed a home visit by the
Transitional Care Nurse. He is agreeable to a home visit. Medical work-up in progress. The discharge plan is to return home with his spouse and a home visit by the Transitional Care Nurse when medically stable.
[2025-02-14] MEDS: LASIX 40 MG IV (09:37)
[2025-02-14] MEDS: FARXIGA 10 MG PO (09:37)
[2025-02-14 09:45] LABS: Glucose - Point of Care 136 mg/dl (70-99)
[2025-02-14] MEDS: ZOFRAN 4 MG IV (09:58)
--- NOTE | 2025-02-14 09:59 | W.PN.CD ---
Today's Communication / Plan
-
Agree with managment
Impression / Plan
-
s/p CABG x 4 (DEANNA to LAD, GSV to D, GSV to RPDA, GSV to LPLB/terminal LCx); ELAA (40mm AtriClip) by Dr. Hills on 02/12/22, pod #1
- multivessel CAD
- transferred to [facility] for CABG evaluation.
- pre op Echo with EF 50 to 55%
- stable post op in NSR
- no rub this morning
- continue post op care per CT surgery
- Intraop MONSE reviewed, EF 50%, valves ok, rv ok
h/o HTN -continue to monitor.post op
HLD -statin, stable
RBBB/LAFB - chronic, stable. Post OP eKg sable
Subjective:
Feels good.
Physical Exam
Vital Signs/Labs
Vital Signs
Temp Pulse Resp BP Pulse Ox
98.2 F 76 16 106/56 93
02/14/25 04:00 02/14/25 09:00 02/14/25 08:00 02/14/25 09:00 02/14/25 09:00
02/13/25 02/14/25 02/15/25
06:59 06:59 06:59
Actual Weight 96.7 kg 97.2 kg
02/14/25 02:09
02/14/25 02:09
PT 18.4 Sec (11.4-14.6) H 02/12/25 14:42
INR 1.48 02/12/25 14:42
APTT 31.5 Sec (23.4-35.0) 02/12/25 14:42
Magnesium 2.4 mg/dl (1.6-2.3) H 02/14/25 02:09
Physical Exam
Constitutional: No acute distress
EENT: Anicteric
Cardiovascular: Rhythm & rate is regular and Pedal edema is absent
Respiratory: Respiratory effort normal and Lungs clear to auscul.
GI: Soft and Distention absent
Neuro/Psych: AO x 3 and Motor deficits absent
Data Reviewed
-
Date of Service: February 14, 2025
--- NOTE | 2025-02-14 10:03 | W.PN.CD ---
Today's Communication / Plan
-
Agree with care
Impression / Plan
-
s/p CABG x 4 (DEANNA to LAD, GSV to D, GSV to RPDA, GSV to LPLB/terminal LCx); ELAA (40mm AtriClip) by Dr. Hills on 02/12/22, pod #1
- multivessel CAD
- transferred to [facility] for CABG evaluation.
- pre op Echo with EF 50 to 55%
- stable post op in NSR
- no rub this morning
- continue post op care per CT surgery
- Intraop MONSE reviewed, EF 50%, valves ok, rv ok
h/o HTN -continue to monitor.post op
HLD -statin, stable
RBBB/LAFB - chronic, stable. Post OP eKg sable
Subjective:
Feels good.
Physical Exam
Vital Signs/Labs
Vital Signs
Temp Pulse Resp BP Pulse Ox
98.2 F 76 16 106/56 93
02/14/25 04:00 02/14/25 09:00 02/14/25 08:00 02/14/25 09:00 02/14/25 09:00
02/13/25 02/14/25 02/15/25
06:59 06:59 06:59
Actual Weight 96.7 kg 97.2 kg
02/14/25 02:09
02/14/25 02:09
PT 18.4 Sec (11.4-14.6) H 02/12/25 14:42
INR 1.48 02/12/25 14:42
APTT 31.5 Sec (23.4-35.0) 02/12/25 14:42
Magnesium 2.4 mg/dl (1.6-2.3) H 02/14/25 02:09
Physical Exam
Constitutional: No acute distress
EENT: Anicteric
Cardiovascular: Rhythm & rate is regular
Respiratory: Respiratory effort normal and Lungs clear to auscul. (decrease left base)
GI: Soft
Neuro/Psych: AO x 3 and Motor deficits absent
Data Reviewed
-
Date of Service: February 14, 2025
--- NOTE | 2025-02-14 11:30 | PTCARENOTE ---
Pt received 40mg IV Lasix per order. Voiding in bathroom without issue. Chest tubes x4 d/c'd per order. Pt ambulated in spann with cardiac rehab, tolerated well. Pt remains SR with HR 80. BP 109/80 MAP 87. Pulse oximetry 92% on room air.
[2025-02-14] MEDS: NOVOLOG FLEXPEN SC (12:43)
[2025-02-14 12:45] LABS: Glucose - Point of Care 104 mg/dl (70-99)
[2025-02-14] MEDS: NSS 500 IV (15:16)
--- NOTE | 2025-02-14 16:00 | PTCARENOTE ---
Pt OOB all day, ambulated multiple times in the hallway. Pt remains SR with BBB, HR 87. BP 120/57 MAP 73. Pulse oximetry 91% on room air. No complaints of pain.
[2025-02-14] MEDS: LIPITOR 40 MG PO (17:21)
[2025-02-14 17:24] LABS: Glucose - Point of Care 146 mg/dl (70-99)
--- NOTE | 2025-02-14 20:00 | PTCARENOTE ---
Assumed care of patient at 1900. AOx3, ambulating independently in the halls, pain mild 4-5 at this time, pain medication options discussed. SR RBBB, V wire insulated, rub auscultated, trace to +1 generalized edema. On RA, desatting once in bed and
placed on 2LNC. Abdomen obese, round, NT. Voiding without difficulty in the urinal adrián urine. All surgical sites stable and intact. RIJ cordis and PIVx2. OOB in the chair, call reyes within reach. POC discussed, pt in agreement, assessment of needs
ongoing.
[2025-02-14] MEDS: MAGNESIUM OXIDE PO (20:09)
[2025-02-14] MEDS: REMOVE LIDOCAINE PATCH 1 PATCH REMOVE (20:15)
[2025-02-14] MEDS: KCL 20 MEQ PO (21:04)
[2025-02-14 23:52] LABS: Glucose - Point of Care 133 mg/dl (70-99)
[2025-02-15] VITALS (9 sets, daily range): BP systolic 104–143; BP diastolic 59–87; PULSE 72; O2SAT 92–93; BMI 33.3
--- NOTE | 2025-02-15 | PTCARENOTE ---
Pt sleeping between care, OOB to the bathroom and passing flatus; voided into the toilet without difficulty, placed back into bed. 2LNC maintained. VSS. Assessment of needs ongoing.
--- NOTE | 2025-02-15 04:22 | W.PN.CT ---
Addendum entered and electronically signed by Negro Hills MD 02/15/25 09:41:
I saw and examined the patient.
The PA's note was reviewed and I agree with the note.
Comment:
FOREIGN 2260:
POD#3 s/p CABG x 4, ELAA
No major overnight events.� AVSS.� Sinus.� RA.� No gtts.� No drains.� UO: spontaneous, adequate, 1050 overnight.� Tolerating PO.� Neuro: intact.� CXR: small L effusion/atelectasis.�
-��������� D/C cordis
-��������� Free water restrict, diuresis
-��������� OOB/IS/ambulate
-��������� Home tomorrow
Original Note:
Today's Communication / Plan
-
Plan:
-No major issues overnight. Hemodynamically and neurologically intact
-Off all drips
-On Colchicine for suspected acute pericarditis
-Cont. current meds (ASA, Plavix, Amiodarone, Lopressor, Lipitor, Colchicine)
-D/C cordis
-Maintain temporary PW (will cut before d/c home)
-Encourage use of IS
-OOB into chair/Ambulate
-Home likely tomorrow
Assessment / Plan
-
-mv-CAD- s/p CABG x 4 (DEANNA to LAD, GSV to D, GSV to RPDA, GSV to LPLB/terminal LCx); ELAA (40mm AtriClip) by Dr. Hills on 02/12/22, pod #3
-Post-MONSE: LVEF 50%, mild MR, RV normal, FRANCESCA confirmed excluded, grade III atheromatous dz in aortic arch, calcium at STJ
-HTN
-HLD
-RBBB/LAFB
-TTE on 10/31/24 demonstrating normal LV size and systolic function with EF 55-60%
-Non-Hodgkin's lymphoma 2017 with partial thyroidectomy and chemo. Pt had no radiation (refused)
-Elevated TSH 9.57 with nl free T4 of 0.75 on 02/05/25
-Coronary CT angio 01/24/25 revealed enlargement of the left lobe of the liver and caudate lobe, suggesting mild hepatic cirrhosis. Also, mild diffuse pancreatic parenchymal atrophy and lipomatosis; mildly enlarged spleen and likely complex cyst at
R kidney.
-CT 02/07/25: fatty liver, suspected early cirrhosis
-hx diverticulitis with hemicolectomy
-Cholecystectomy
-L knee sx
-intermittent L lower extremity swelling with paresthesia and discoloration, suspected neuropathy.
Echo 02/07/25:
1. Normal left ventricular size, and systolic function. Estimated LVEF 50-55%.
2. Basal inferior hypokinesis.
3. Mild/moderate mitral valve regurgitation.
4. Aortic valve sclerosis without stenosis.
5. Trivial pericardial effusion is present.
6. No prior study for comparison.
Chest CT 02/07/25:
-There is no evidence for thoracic aortic aneurysm.
-Coronary artery calcifications are present in this patient scheduled for cardiothoracic surgery.
-Thin linear densities within both lower lungs compatible with linear atelectasis.
-Minimal pericardial effusion, unlikely to be clinically significant.
-Fatty infiltration the liver, with morphology that can be associated with early cirrhosis. Please correlate with any risk factors for cirrhosis.
- Acute postop blood loss anemia - stable, no transfusion
- Acute postop atelectasis/ pulmonary insufficiency
- Acute postop hypovolemia with subsequent hypervolemia
- Acute postop suspected acute pericarditis started on Colchicine
Discussed patient care with: Cardiology, Nursing, Respiratory Therapy, Pharmacy and Care Team
Subjective
-
Date of Service: February 15, 2025
Pt c/o mild incisional pain, otherwise feels well
Objective Data
-
PT 18.4 Sec (11.4-14.6) H 02/12/25 14:42
INR 1.48 02/12/25 14:42
APTT 31.5 Sec (23.4-35.0) 02/12/25 14:42
Vital Signs
Vital Signs
Temp Pulse Resp BP Pulse Ox
98.3 F 81 18 138/66 92
02/15/25 04:07 02/15/25 04:07 02/15/25 04:07 02/15/25 04:07 02/15/25 04:07
CT Intake/Output/Weight
02/14/25 02/14/25 02/15/25
06:59 18:59 06:59
Intake Total 143.9 / 1272.5 133.5 / 303.5 170 / 303.5
Output Total 670 / 935 1720 / 2660 940 / 2660
Balance -526.1 / 337.5 -1586.5 / -2356.5 -770 / -2356.5
SaO2: 92 (2L)
Physical Exam
-
General: Awake, Oriented and AOx3
Cardiovascular: Regular rate & rhythm, No Murmurs and No Gallop
Respiratory: Decreased Breath Sounds (at bases, otherwise clear)
Sternum: Stable
Incision: Clean, Dry, Intact and Dressing Intact
Extremities: Other (+trace edema)
Data Reviewed
-
Lab Results: Results Reviewed
Medications: Active Meds Reviewed
Chest X-Ray: Report Reviewed and Image Reviewed
ECG: Report Reviewed and Image Reviewed
[2025-02-15 04:42] LABS: Hematocrit 33.9 % (39.0-52.0); Hemoglobin 11.4 g/dL (13.0-18.0); Mean Corp Hgb Conc. 33.6 g/dL (33.0-37.0); Mean Corpuscular Volume 91.9 fL (80.0-94.0); Platelet Count 186 10^3/uL (130-400); Red Cell Dist. Width 13.2 % (11.5-14.5)
[2025-02-15 05:09] LABS: Blood Urea Nitrogen 28 mg/dl (9-20); Calcium 8.3 mg/dl (8.4-10.2); Carbon Dioxide 30 mmol/L (22-30); Chloride 100 mmol/L (98-107); Estimated Creatinine Clearance 80 ml/min; Glucose 109 mg/dl (70-99); Magnesium 2.3 mg/dl (1.6-2.3); Potassium 4.2 mmol/L (3.5-5.1); Sodium 133 mmol/L (135-145); eGFR > 60.00
[2025-02-15] MEDS: TYLENOL 975 MG PO ×3 (06:09→21:29)
[2025-02-15 07:43] LABS: Glucose - Point of Care 130 mg/dl (70-99)
[2025-02-15] MEDS: PLAVIX 75 MG PO (07:43)
[2025-02-15] MEDS: PROTONIX 40 MG PO (07:43)
[2025-02-15] MEDS: LOW STRENGTH ASPIRIN 81 MG PO (07:43)
[2025-02-15] MEDS: FARXIGA 10 MG PO (07:43)
[2025-02-15] MEDS: NEURONTIN 100 MG PO ×3 (07:43→21:29)
[2025-02-15] MEDS: LOPRESSOR 12.5 MG PO ×2 (07:43→19:34)
[2025-02-15] MEDS: COLCHICINE 0.3 MG PO (07:43)
[2025-02-15] MEDS: SENOKOT 8.6 MG PO (07:44)
[2025-02-15] MEDS: PACERONE 200 MG PO ×3 (07:44→21:30)
[2025-02-15] MEDS: LIDOCAINE 4% PATCH 1 PATCH TOPICAL (07:45)
[2025-02-15] MEDS: BACTROBAN 2% OINTMENT 1 APPLIC NASAL ×2 (07:45→19:34)
--- NOTE | 2025-02-15 08:00 | PTCARENOTE ---
report received from christal RN. pt resting OOB in chair. AAOX3. denies pain at this time. SR on telemetry heart rate in 70-80s. pulses palpable. +1 generalized edema. pt on room air, sat 92%. lung sounds diminished in bases. active bowel sounds,
no BM noted at this time. voiding clear yellow urine in bathroom. surgical sites MARY, CDI. pt updated on plan of care. see worklist for full nursing assessment and interventions.
[2025-02-15] MEDS: LASIX 40 MG IV (10:50)
[2025-02-15] MEDS: MILK OF MAGNESIA 30 ML PO (10:59)
--- NOTE | 2025-02-15 12:00 | PTCARENOTE ---
vitals stable. pt ambulated indepenently in room and spann without difficulty. Right IJ cordis removed per orders, pt tolerated well. pt reports constipation- received milk of mag with no relief. prn dulcolax suppository given. pt then reported
having a large hard bowel movement
[2025-02-15] MEDS: DULCOLAX 10 MG RECTAL (13:09)
[2025-02-15 13:15] LABS: Glucose - Point of Care 125 mg/dl (70-99)
[2025-02-15] MEDS: NSS IV (13:50)
--- NOTE | 2025-02-15 15:52 | PTCARENOTE ---
vitals stable. no changes in assessment noted.
[2025-02-15 17:46] LABS: Glucose - Point of Care 137 mg/dl (70-99)
[2025-02-15] MEDS: LIPITOR 40 MG PO (17:52)
[2025-02-15] MEDS: SENOKOT PO (19:35)
[2025-02-15 21:29] LABS: Glucose - Point of Care 125 mg/dl (70-99)
[2025-02-15] MEDS: FLEXERIL 5 MG PO (21:29)
[2025-02-15] MEDS: REMOVE LIDOCAINE PATCH 1 PATCH REMOVE (21:29)
--- NOTE | 2025-02-15 21:50 | PTCARENOTE ---
ax3 pt ambulates in room. all sx sites cdi. sinus afebrile bp wnl. 94% 0n room air lungs clear- 1500 on incentive spirometer. pain well controlled without prn's. pt had several bm's today . now on loose side
[2025-02-16 03:04] VITALS: BP 122/64
[2025-02-16 03:20] VITALS: BMI 33.1
[2025-02-16 04:47] LABS: Blood Urea Nitrogen 29 mg/dl (9-20); Calcium 8.4 mg/dl (8.4-10.2); Carbon Dioxide 31 mmol/L (22-30); Chloride 98 mmol/L (98-107); Estimated Creatinine Clearance 79 ml/min; Glucose 100 mg/dl (70-99); Magnesium 2.8 mg/dl (1.6-2.3); Potassium 4.1 mmol/L (3.5-5.1); Sodium 132 mmol/L (135-145); eGFR > 60.00
--- NOTE | 2025-02-16 05:13 | W.PN.CT ---
Addendum entered and electronically signed by Negro Hills MD 02/16/25 09:28:
I saw and examined the patient.
The PA's note was reviewed and I agree with the note.
Comment:
D/C home today
PO Diuresis x 1 week
Fluid restriction
F/U labs 1 week
Original Note:
Today's Communication / Plan
-
Plan:
-No major issues overnight. Hemodynamically and neurologically intact
-Off all drips
-On Colchicine for suspected acute pericarditis
-Started on Farxiga per Diabetes management given hx of Pre-diabetes with A1C of 6.2
-Cont. current meds (ASA, Plavix, Amiodarone, Lopressor, Lipitor, Farxiga, Colchicine)
-F/U 2-view cxr
-D/C PW (will cut before d/c home)
-Monitor hyponatremia, 132. Fluid restriction, cont. diuresis
-CO2 31, will give Diamox
-Mag 2.8, mag oxide on hold
-Encourage use of IS
-OOB into chair/Ambulate
-Home today
Assessment / Plan
-
-mv-CAD- s/p CABG x 4 (DEANNA to LAD, GSV to D, GSV to RPDA, GSV to LPLB/terminal LCx); ELAA (40mm AtriClip) by Dr. Hills on 02/12/22, pod #4
-Post-MONSE: LVEF 50%, mild MR, RV normal, FRANCESCA confirmed excluded, grade III atheromatous dz in aortic arch, calcium at STJ
-HTN
-HLD
-Prediabtetes (A1C 6.2)
-RBBB/LAFB
-TTE on 10/31/24 demonstrating normal LV size and systolic function with EF 55-60%
-Non-Hodgkin's lymphoma 2017 with partial thyroidectomy and chemo. Pt had no radiation (refused)
-Elevated TSH 9.57 with nl free T4 of 0.75 on 02/05/25
-Coronary CT angio 01/24/25 revealed enlargement of the left lobe of the liver and caudate lobe, suggesting mild hepatic cirrhosis. Also, mild diffuse pancreatic parenchymal atrophy and lipomatosis; mildly enlarged spleen and likely complex cyst at
R kidney.
-CT 02/07/25: fatty liver, suspected early cirrhosis
-hx diverticulitis with hemicolectomy
-Cholecystectomy
-L knee sx
-intermittent L lower extremity swelling with paresthesia and discoloration, suspected neuropathy.
Echo 02/07/25:
1. Normal left ventricular size, and systolic function. Estimated LVEF 50-55%.
2. Basal inferior hypokinesis.
3. Mild/moderate mitral valve regurgitation.
4. Aortic valve sclerosis without stenosis.
5. Trivial pericardial effusion is present.
6. No prior study for comparison.
Chest CT 02/07/25:
-There is no evidence for thoracic aortic aneurysm.
-Coronary artery calcifications are present in this patient scheduled for cardiothoracic surgery.
-Thin linear densities within both lower lungs compatible with linear atelectasis.
-Minimal pericardial effusion, unlikely to be clinically significant.
-Fatty infiltration the liver, with morphology that can be associated with early cirrhosis. Please correlate with any risk factors for cirrhosis.
- Acute postop blood loss anemia - stable, no transfusion
- Acute postop atelectasis/ pulmonary insufficiency
- Acute postop hypovolemia with subsequent hypervolemia
- Acute postop suspected acute pericarditis started on Colchicine
- Acute postop hyponatremia, 133
Discussed patient care with: Cardiology, Nursing, Respiratory Therapy, Pharmacy and Care Team
Subjective
-
Date of Service: February 16, 2025
Pt c/o mild incisional pain, otherwise feels well. Ambulating halls without difficulty, had BM
Objective Data
-
Lab Results
02/16/25 04:15
PT 18.4 Sec (11.4-14.6) H 02/12/25 14:42
INR 1.48 02/12/25 14:42
APTT 31.5 Sec (23.4-35.0) 02/12/25 14:42
Vital Signs
Vital Signs
Temp Pulse Resp BP Pulse Ox
98.3 F 68 15 122/64 94
02/16/25 03:44 02/16/25 04:00 02/15/25 15:38 02/16/25 03:04 02/15/25 22:28
CT Intake/Output/Weight
02/15/25 02/15/25 02/16/25
06:59 18:59 06:59
Intake Total 170 / 303.5 480 / 720 240 / 720
Output Total 940 / 2660 900 / 2000 1100 / 2000
Balance -770 / -2356.5 -420 / -1280 -860 / -1280
SaO2: 94 (RA)
Physical Exam
-
General: Awake, Oriented and AOx3
Cardiovascular: Regular rate & rhythm, No Murmurs, No Rub and No Gallop
Respiratory: Decreased Breath Sounds (at bases, otherwise clear)
Sternum: Stable
Incision: Clean, Dry, Intact and Dressing Intact
Extremities: Other (+trace edema)
Data Reviewed
-
Lab Results: Results Reviewed
Medications: Active Meds Reviewed
Chest X-Ray: Report Reviewed and Image Reviewed
ECG: Report Reviewed and Image Reviewed
[2025-02-16 05:41] LABS: Hematocrit 36.8 % (39.0-52.0); Hemoglobin 11.9 g/dL (13.0-18.0); Mean Corp Hgb Conc. 32.3 g/dL (33.0-37.0); Mean Corpuscular Volume 94.8 fL (80.0-94.0); Platelet Count 229 10^3/uL (130-400); Red Cell Dist. Width 13.0 % (11.5-14.5)
[2025-02-16] MEDS: TYLENOL 975 MG PO (05:52)
[2025-02-16] MEDS: DIAMOX 250 MG PO (05:52)
--- NOTE | 2025-02-16 06:28 | PTCARENOTE ---
pt assisted oob- ambulates very well without assistance- sinus bp wnl
[2025-02-16 07:20] LABS: Glucose - Point of Care 115 mg/dl (70-99)
[2025-02-16] MEDS: BACTROBAN 2% OINTMENT 1 APPLIC NASAL (08:13)
[2025-02-16] MEDS: NEURONTIN 100 MG PO (08:14)
[2025-02-16] MEDS: FARXIGA 10 MG PO (08:14)
[2025-02-16] MEDS: COLCHICINE 0.3 MG PO (08:14)
[2025-02-16] MEDS: PROTONIX 40 MG PO (08:14)
[2025-02-16] MEDS: LOW STRENGTH ASPIRIN 81 MG PO (08:15)
[2025-02-16] MEDS: SENOKOT PO (08:15)
[2025-02-16] MEDS: PLAVIX 75 MG PO (08:15)
[2025-02-16 08:18] VITALS: BP 116/88
[2025-02-16] MEDS: TOPROL XL 25 MG PO (08:21)
[2025-02-16] MEDS: PACERONE 200 MG PO (08:22)
--- NOTE | 2025-02-16 09:32 | PTCARENOTE ---
Received patient for 7a-7p shift. Patient AAOx3, without complaints. VSS, NSR with BBB on monitor technician. Patient ambulatory in room and spann without assistance. Medications administered as ordered, patient denies pain at this time. Blood glucose
115. Patient tolerating po intake, voiding without issues. Instructed patient to call for assistance as needed. Pt for 2 view CXR.
--- NOTE | 2025-02-16 11:22 | W.DCSUMMARY ---
Discharge Summary
Discharge Data
Date of Admission: 02/06/25
Date of Discharge: 02/16/25
-
Pending Results: No
Hospital Course
Primary care physician: Ras Miramontes
Outpatient ophthalmic dispenser: Gage Saenz
Inpatient consultants: [facility] cardiology, pulmonary it service continuity supervisor
Procedures:
1. CABG, left atrial appendage clip
Primary Diagnosis:
1. CAD
Secondary Diagnoses:
1. HTN
2. HLD
3. Prediabtetes (A1C 6.2)
4. RBBB/LAFB
5. Non-Hodgkin's lymphoma 2017 with partial thyroidectomy and chemo. Pt had no radiation (refused)
6. Elevated TSH 9.57 with nl free T4 of 0.75 on 02/05/25
7. fatty liver, suspected early cirrhosis by CT 02/07/25
8. hx diverticulitis with hemicolectomy
9. Cholecystectomy
10. L knee sx
11. intermittent L lower extremity swelling with paresthesia and discoloration, suspected neuropathy
- Acute postop blood loss anemia - stable, no transfusion
- Acute postop pulmonary insufficiency
- Acute postop hypovolemia with subsequent hypervolemia
- Acute postop pericarditis started on Colchicine
- Acute postop hyponatremia, 133
HPI: 69-year-old male was admitted to [facility] on 02/05/2025 with complaints of exertional chest pain. He ruled out for MS with negative troponins. Heart catheterization reported multivessel coronary disease and patient was
transferred to outside hospital on 02/06/2025 for CABG evaluation.
Hospital course: Patient proceeded with preop diagnostic testing which reported normal carotid ultrasound and CT of chest. Patient was taken to the operating room on 02/12/2025 and underwent CABG x 4 with SUMNER to LAD, SVG to diagonal, SVG to RPDA,
and SVG to LCx by Dr. Negro Hills. Postprocedure MONSE reported an EF of 50% with mild mitral regurgitation. For further details please see operative note. Patient required no intraoperative blood products and returned to CVICU on Levophed.
Patient extubated at 1800 and weaned off Levophed infusion overnight. Colchicine was initiated on postoperative day #1 for pericarditis on twelve-lead ECG and a noted pericardial rub. Long-term management and Plavix x 3 months were initiated. On
postoperative day #2, patient was diuresed and chest drains removed. A fluid restriction was instituted on postoperative day #3 due to hyponatremia with sodium 133. Farxiga was initiated due to prediabetes and heart disease. Patient remained
stable without fever, dysrhythmias, or hypotension, and wires were clipped to skin level on postoperative day #5. As no dysrhythmias were noted postoperatively, prophylactic Amiodarone was discontinued at discharge. Patient was discharged with a
prescription for Lasix 20 mg daily x 1 week and instructions to maintain fluid restriction. He will have a follow-up BMP/CBC in 1 week. Losartan was not resumed postoperatively due to lower normal range blood pressure. Labs on day of discharge:
WBC 14.5 (down from 17.8), hemoglobin 11.9, platelets 229K, sodium 132, creatinine 1.0, potassium 4.1. A two-view chest x-ray reported no acute pulmonary abnormality. Patient will be followed by transitional nurse team and follow-up with
Reinier in clinic on 03/11/2025.
Home medication changes:
Stop losartan
Discharge Plan
-
Patient Disposition: Home (Routine Discharge)
Discharge Diagnosis/Procedures: CABG x 4, left atrial appendage clip (02/12/25)
Condition: Good
Diet: Low Cholesterol, Low Sodium and Diabetic, Carb Controlled
Activity: No strenuous activity
Driving Restrictions: Not until seen by your Dr
Bathing Restrictions: OK to Shower
Blood Work: BMP/CBC in 1 week
Other Services: Cardiac Rehab
Specialty Instructions: Weigh Daily- Call MD for wt gain/loss 3 lbs overnight/5 lbs in 1 week
Referrals:
CT Transitional Care Nurse [Outside] - in one to two days
Referral Note:
The Cardiothoracic Transitional Care Nurse will call you to set up a visit in 1-2 days.
[facility]. Cardiac Rehab [Outside] - 03/27/25 8:30 am
Referral Note: Cardiac Rehab Orientation appointment is on March 27 at 8:30am.
The Cardiac Rehab gym is located on the first floor of the [facility].
Gage Berrios MD [Active, Internal Medicine] - 03/31/25 10:00 am
Negro Hills MD [Active, Cardiac Surgery] - 03/11/25 2:00 pm
UNKNOWN - PT NOT,INTERVIEWE [Family Provider]
Additional Discharge Medication Instructions: stop Losartan. Clopidogrel (Plavix) x 3 month. Pantoprozole (Protonix) can be discontinued when off Plavix. Dapagliflozin for prediabetes/heart disease
Prescriptions:
New
acetaminophen 325 mg Tablet
650 mg PO Q4HPRN PRN (Reason: mild pain,headache,temp >101F ) Qty: 0 0RF
furosemide [Lasix] 20 mg tablet
20 mg PO DAILY Qty: 7 0RF
Rx Instructions:
Take daily for 7 days, then stop
cyclobenzaprine 10 mg Tablet
5 mg PO Q8HPRN PRN (Reason: muscle spasm) Qty: 10 0RF
atorvastatin 40 mg Tablet
40 mg PO QPM Qty: 30 2RF
clopidogrel 75 mg Tablet
75 mg PO DAILY Qty: 30 2RF
colchicine 0.6 mg Tablet
0.6 mg PO DAILY Qty: 30 1RF
pantoprazole 40 mg Tablet,Delayed Release (Dr/Ec)
40 mg PO DAILY Qty: 30 2RF
gabapentin 100 mg Capsule
100 mg PO TID Qty: 30 0RF
metoprolol succinate 25 mg Tablet Extended Release 24 Hr
25 mg PO DAILY Qty: 30 2RF
oxycodone 5 mg Tablet
5 mg PO Q4HPRN PRN (Reason: severe pain) Qty: 10 0RF
dapagliflozin propanediol 10 mg Tablet
10 mg PO DAILY Qty: 30 2RF
Continued
aspirin 81 mg Tablet
81 mg PO DAILY
Discontinued
losartan 50 mg Tablet
50 mg PO DAILY
Discharge Orders:
Discharge Patient (As Directed); Ordered 02/16/25
Ordered By: Nahomi Fitzgerald
Care Plan Goals
Care Plan Goals:
Problem: Readiness for enhanced knowledge related to diagnosis and treatment plan
Goal: Understand your diagnosis and treatment plan needs, including medications if applicable.
Instructions: Know your diagnosis, underlying causes and treatment plan options, including medications if applicable. Consult with your health care team to learn about your diagnosis and treatment plan, including medications if applicable.
Discharge Date and Time
Print Language: IVORIAN
[2025-02-16 11:50] LABS: Glucose - Point of Care 134 mg/dl (70-99)
[2025-02-16 11:51] VITALS: BP 123/66
--- NOTE | 2025-02-16 12:41 | PTCARENOTE ---
Patient reassessed, assessment unchanged from previous. Patient AAOx3, SR with BBB on surveillance system monitor. VSS, denies pain at this time. Patient for discharge today. V wire cut by CT CAMILA Comer. All dressings removed, pt showered without issues. Await
discharge instructions.
[2025-02-16 15:09] VITALS: BP 119/72
--- NOTE | 2025-02-16 16:03 | PTCARENOTE ---
Patient discharged to home. Discharged instructions reviewed with patient and , verbalized understanding. PIV removed x 2, patient denies pain on discharge. Pt showered, VSS prior to discharge, NSR on deputy fire marshal. Patient discharged via
wheelchair with RN escort. Safely transferred to car without issues.
[2025-02-16] MEDS: NSS IV (16:06)
[2025-02-16] MEDS: TYLENOL PO (16:06)
== END 2025-02-16 16:06 | disposition home or self-care (01) | DRG 235 ==
LOC: CVICU 20:35
PROVIDERS: Anesthesiology; Clinical Nurse Specialist Acute Care; Nurse Practitioner; Physician Assistant Medical; Student in an Organized Health Care Education/Training Program; ADMITTING PHYSICIAN Thoracic Surgery (Cardiothoracic Vascular Surgery); CONSULT PHYSICIAN Internal Medicine; CONSULT PHYSICIAN Internal Medicine Critical Care Medicine
PROC: 02100ZC Bypass Coronary Artery, One Artery from Thoracic Artery, Open Approach (ICD-10-PCS; 2025-02-12)
PROC: 02L70CK Occlusion of Left Atrial Appendage with Extraluminal Device, Open Approach (ICD-10-PCS; 2025-02-12)
PROC: 5A1221Z Performance of Cardiac Output, Continuous (ICD-10-PCS; 2025-02-12)
PROC: 06BQ4ZZ Excision of Left Saphenous Vein, Percutaneous Endoscopic Approach (ICD-10-PCS; 2025-02-12)
PROC: 021209W Bypass Coronary Artery, Three Arteries from Aorta with Autologous Venous Tissue, Open Approach (ICD-10-PCS; 2025-02-12)
PROC: B24BZZ4 Ultrasonography of Heart with Aorta, Transesophageal (ICD-10-PCS; 2025-02-12)
PROC: 06BP4ZZ Excision of Right Saphenous Vein, Percutaneous Endoscopic Approach (ICD-10-PCS; 2025-02-12)
DX: I25.110 Atherosclerotic heart disease of native coronary artery with unstable angina pectoris (principal); J95.1 Acute pulmonary insufficiency following thoracic surgery; I45.2 Bifascicular block; D62 Acute posthemorrhagic anemia; E87.1 Hypo-osmolality and hyponatremia; I30.8 Other forms of acute pericarditis; J98.11 Atelectasis; E86.1 Hypovolemia; E87.70 Fluid overload, unspecified; I10 Essential (primary) hypertension; K76.0 Fatty (change of) liver, not elsewhere classified; G62.9 Polyneuropathy, unspecified; E78.00 Pure hypercholesterolemia, unspecified; R73.03 Prediabetes; K74.60 Unspecified cirrhosis of liver; Y83.2 Surgical operation with anastomosis, bypass or graft as the cause of abnormal reaction of the patient, or of later complication, without mention of misadventure at the time of the procedure; I08.0 Rheumatic disorders of both mitral and aortic valves; Z85.72 Personal history of non-Hodgkin lymphomas; Z92.21 Personal history of antineoplastic chemotherapy; Z79.82 Long term (current) use of aspirin
CPT/HCPCS: 71045; 71046; 71250; 80048; 80053; 81003; 81015; 82248; 82330; 82565; 82805; 82947; 82962; 83036; 83695; 83735; 84132; 84302; 84484; 84520; 85014; 85018; 85027; 85049; 85610; 85730; 86850; 86900; 86901; 86920; 93005; 93306; 93312; 93320; 93325; 93880; 93923; 93931; 94002; P9045

== ENCOUNTER 2025-04-07 11:47 | Outpatient (RCR) | payer OTHER, SELFPAY | END 2025-04-07 23:59 | disposition home or self-care (01) | LOC: CRHB 11:47 | PROVIDERS: ATTENDING PHYSICIAN Internal Medicine Clinical Cardiac Electrophysiology; FAMILY PHYSICIAN Family Medicine | DX: Z95.1 Presence of aortocoronary bypass graft (principal); I25.10 Atherosclerotic heart disease of native coronary artery without angina pectoris (principal) | CPT/HCPCS: G0422; G0423 ==